=== PATIENT | female | born 1970 | race Caucasian/White ===

== ENCOUNTER 2018-04-19 07:34 | Inpatient (IN) | payer BC ==
[2018-04-19] VITALS (10 sets, daily range): BP systolic 110–169; BP diastolic 70–98; PULSE 73–115; TEMP 36.7–37; O2SAT 93–95; Ht 162.6 cm; Wt 77.6 kg
[~2018-04-19] VITALS: Ht 162.6 cm; Wt 77.6 kg
[~2018-04-19 07:34] MED LIST: ALBU0.08 INH; ALBUAER INH; CLR10 PO; EPP3/2 IM; MONT1TAB3 PO; PRED10TA PO; RANI150T3 PO
[2018-04-19] MEDS ORDERED: METHYLPREDNISOLONE 125 MG VIAL IV STA (07:42)
[2018-04-19] MEDS ORDERED: ALBUT/IPRATROP 3MG/0.5MG NEB 3 ML VIAL INH ONE (07:45)
[2018-04-19] MEDS ORDERED: ALBINS/ INH (07:56)
[2018-04-19] MEDS ORDERED: VNTHFA/IN INH (07:56)
--- NOTE | 2018-04-19 07:57 | DIAGNOSTIC IMAGING REPORT ---
CHEST ONE VIEW PORTABLE CLINICAL HISTORY: EVALUATE RESPIRATORY DISTRESS.DYSPNEA dyspnea COMPARISON STUDY: 01/04/2016 FINDINGS: The bones soft tissues and hemidiaphragms are normal. The cardiomediastinal silhouette is normal. The lungs are clear. The pulmonary vasculature is normal. IMPRESSION: Negative chest. The above report was generated using voice recognition software. It may contain grammatical, syntax or spelling errors. Electronically signed by: Sandip Sanz M.D. 04/19/2018 7:56 AM Dictated Date/Time: 04/19/2018 7:55 AM
[2018-04-19 08:10] LABS: BASO % 0.3 %; BASO ABS # 0.03 K/uL (0-0.2); EOS % 3.9 %; EOS ABS # 0.43 K/uL (0-0.5); HEMATOCRIT 45.2 % (37-47); IG# 0.03 K/uL (0.00-0.02); LYMPH % 31.6 %; LYMPH ABS # 3.48 K/uL (1.2-3.4); MEAN CELL VOLUME 85.6 fL (80-100); MEAN CORPUSCULAR HEMOGLOBIN 28.4 pg (25-34); MEAN CORPUSCULAR HGB CONC 33.2 g/dl (32-36); MEAN PLATELET VOLUME 9.3 fL (7.4-10.4); MONO % 8.5 %; MONO ABS # 0.94 K/uL (0.11-0.59); NEUT % 55.4 %; NEUT ABS # 6.11 K/uL (1.4-6.5); PLATELET COUNT 301 K/uL (130-400); RED CELL DISTRIBUTION WIDTH CV 13.7 % (11.5-14.5); RED CELL DISTRIBUTION WIDTH SD 42.6 fL (36.4-46.3); WHITE BLOOD COUNT 11.02 K/uL (4.8-10.8)
[2018-04-19 08:31] LABS: ALBUMIN 3.8 gm/dl (3.4-5.0); ALKALINE PHOSPHATASE 82 U/L (45-117); ALT/SGPT 17 U/L (12-78); AST/SGOT 11 U/L (15-37); BLOOD UREA NITROGEN 16 mg/dl (7-18); CALCIUM 8.8 mg/dl (8.5-10.1); CARBON DIOXIDE 25 mmol/L (21-32); CREATININE 0.53 mg/dl (0.60-1.20); GLUCOSE 85 mg/dl (70-99); POTASSIUM 3.7 mmol/L (3.5-5.1); SODIUM 141 mmol/L (136-145); TOTAL PROTEIN 6.9 gm/dl (6.4-8.2)
[2018-04-19] MEDS ORDERED: ALBUT/IPRATROP 3MG/0.5MG NEB 3 ML VIAL INH STA (09:36)
[2018-04-19] MEDS ORDERED: MAGNESIUM SULFATE 1GM / D5W 1 GM BAG IV STA (09:39)
[2018-04-19] MEDS ORDERED: ACETAMINOPHEN 325 MG TAB PO PRN (12:00)
[2018-04-19] MEDS ORDERED: ONDANSETRON INJ 2 MG/ML 2 ML VIAL IV PRN (12:00)
[2018-04-19] MEDS ORDERED: AZITHROMYCIN 250 MG TAB PO ONE (12:00)
--- NOTE | 2018-04-19 12:38 | History and Physical ---
History & Physical Date & Time of Service: Apr 19, 2018 ~ 11:15 Chief Complaint: Shortness of breath Primary Care Physician: Jesse Palomares M.D. History of Present Illness Source: patient 39-year-old female who presents the ED with shortness of breath. Patient reports her symptoms began 2 weeks ago. She was seen in her PCPs office about 1 week ago and started on albuterol nebulizer and Medrol Dosepak. Patient completed her steroid taper yesterday. She also tried to take Zyrtec however she broke out in hives. Patient is also to be taking Brio however she self stopped this medication whenever she saw the warnings on the TV commercials. She reports she was on inhaler that she tolerated very well prior to being changed to Brio last fall. She reports she was having improvement in her symptoms until last night whenever she was up coughing all night. Shortness of breath was much more severe this morning. Cough has been nonproductive. She feels like her chest is too tight to produce any sputum. She denies chest pain. She has had some mild lightheadedness and dizziness but denies any syncopal events. No fevers or chills. She denies abdominal pain, nausea, vomiting, diarrhea. She has had some urinary frequency however feels as though that is secondary to her coughing. In the ED, patient received IV Solu-Medrol 125 mg, nebulizer 2, and IV magnesium. Patient reports improvement in her symptoms however chest continues to feel tight and she continues to have wheezing on exam. Past Medical/Surgical History Medical Problems: (1) Asthma Status: Chronic (2) Environmental allergies Status: Chronic Surgical Problems: (1) History of appendectomy Status: Chronic (2) History of nasal septoplasty Status: Chronic (3) History of partial hysterectomy Status: Chronic Family History FH: lung cancer FATHER Stroke FATHER Social History Smoking Status: Current Every Day Smoker Alcohol Use: none Immunizations History of Tetanus Vaccine?: Yes Tetanus Immunization Date: Aug 16, 2011 Allergies Coded Allergies: Cetirizine (Verified Allergy, Intermediate, hives, 04/19/18) Morphine (Verified Allergy, Unknown, RASH, 04/19/18) RASH AND HIVES Sulfa Drugs (Verified Allergy, Unknown, 04/19/18) Home Medications Scheduled Epinephrine (Epipen 2-Bernabe), 1 DOSE IM DIRECTED Scheduled PRN Albuterol Hfa (Ventolin Hfa), 2 PUFFS INH Q4H PRN for SOB/Wheezing Albuterol Sulf (Proventil 0.083% 2.5MG/3ML), 3 ML INH QID PRN for SOB/Wheezing Review of Systems ROS per HPI, all other systems reviewed and negative Physical Exam Vital Signs Date Time Temp Pulse Resp B/P (MAP) Pulse Ox O2 Delivery O2 Flow Rate FiO2 04/19/18 12:05 95 16 122/66 95 04/19/18 11:20 93 Room Air 04/19/18 11:10 93 26 91/66 93 Room Air 04/19/18 09:57 92 22 96/62 94 Room Air 04/19/18 08:55 95 20 125/69 95 Room Air 04/19/18 07:56 115 18 95 Room Air 04/19/18 07:42 92 Room Air 04/19/18 07:42 36.8 104 24 138/100 92 Room Air 04/19/18 07:42 111 General Appearance: WD/WN, no apparent distress Head: normocephalic, atraumatic Eyes: normal inspection, EOMI, sclerae normal ENT: hearing grossly normal, + pertinent finding (Mucous members moist) Neck: supple, no JVD, trachea midline Respiratory/Chest: no respiratory distress, + rhonchi (Noted while coughing), + wheezing (Expiratory), + pertinent finding (Harsh,nonproductive cough with deep breath) Cardiovascular: regular rate, rhythm, no edema, normal peripheral pulses Abdomen/GI: normal bowel sounds, non tender, soft, no organomegaly Extremities/Musculoskelatal: normal inspection, no calf tenderness, normal capillary refill Neurologic/Psych: no motor/sensory deficits, alert, normal mood/affect, oriented x 3 Skin: normal color, warm/dry Diagnostics Laboratory Results Results Past 24 Hours Test 04/19/18 08:00 04/19/18 09:00 Range/Units White Blood Count 11.02 4.8-10.8 K/uL Red Blood Count 5.28 4.2-5.4 M/uL Hemoglobin 15.0 12.0-16.0 g/dL Hematocrit 45.2 37-47 % Mean Corpuscular Volume 85.6 80-100 fL Mean Corpuscular Hemoglobin 28.4 25-34 pg Mean Corpuscular Hemoglobin Concent 33.2 32-36 g/dl Platelet Count 301 130-400 K/uL Mean Platelet Volume 9.3 7.4-10.4 fL Neutrophils (%) (Auto) 55.4 % Lymphocytes (%) (Auto) 31.6 % Monocytes (%) (Auto) 8.5 % Eosinophils (%) (Auto) 3.9 % Basophils (%) (Auto) 0.3 % Neutrophils # (Auto) 6.11 1.4-6.5 K/uL Lymphocytes # (Auto) 3.48 1.2-3.4 K/uL Monocytes # (Auto) 0.94 0.11-0.59 K/uL Eosinophils # (Auto) 0.43 0-0.5 K/uL Basophils # (Auto) 0.03 0-0.2 K/uL RDW Standard Deviation 42.6 36.4-46.3 fL RDW Coefficient of Variation 13.7 11.5-14.5 % Immature Granulocyte % (Auto) 0.3 % Immature Granulocyte # (Auto) 0.03 0.00-0.02 K/uL D-Dimer 240 0-500 ug/L FEU Sodium Level 141 136-145 mmol/L Potassium Level 3.7 3.5-5.1 mmol/L Chloride Level 109 98-107 mmol/L Carbon Dioxide Level 25 21-32 mmol/L Anion Gap 7.0 3-11 mmol/L Blood Urea Nitrogen 16 7-18 mg/dl Creatinine 0.53 0.60-1.20 mg/dl Est Creatinine Clear Calc Drug Dose 132.4 ml/min Estimated GFR () 130.1 Estimated GFR (Non- 112.3 BUN/Creatinine Ratio 29.7 10-20 Random Glucose 85 70-99 mg/dl Calcium Level 8.8 8.5-10.1 mg/dl Total Bilirubin 0.3 0.2-1 mg/dl Aspartate Amino Transf (AST/SGOT) 11 15-37 U/L Alanine Aminotransferase (ALT/SGPT) 17 12-78 U/L Alkaline Phosphatase 82 45-117 U/L Troponin I < 0.015 0-0.045 ng/ml Pro-B-Type Natriuretic Peptide 27 0-450 pg/ml Total Protein 6.9 6.4-8.2 gm/dl Albumin 3.8 3.4-5.0 gm/dl Globulin 3.1 2.5-4.0 gm/dl Albumin/Globulin Ratio 1.2 0.9-2 Urine Color YELLOW Urine Appearance CLEAR CLEAR Urine pH 5.0 4.5-7.5 Urine Specific [place] 1.018 1.000-1.030 Urine Protein NEG NEG Urine Glucose (UA) NEG NEG Urine Ketones NEG NEG Urine Occult Blood 1+ NEG Urine Nitrite NEG NEG Urine Bilirubin NEG NEG Urine Urobilinogen NEG NEG Urine Leukocyte Esterase NEG NEG Urine WBC (Auto) 1-5 0-5 /hpf Urine RBC (Auto) 0-4 0-4 /hpf Urine Hyaline Casts (Auto) 1-5 0-5 /lpf Urine Epithelial Cells (Auto) >30 0-5 /lpf Urine Bacteria (Auto) NEG NEG Diagnostic Radiology CXR IMPRESSION: Negative chest. EKG EKG: Sinus Tachycardia Impression Assessment and Plan ACUTE ASTHMA EXACERBATION -Admit to telemetry -Patient presenting with shortness of breath for the past 2 weeks, was seen at her PCPs office on 04/13 and given albuterol nebulizer and Medrol Dosepak -In the ED, patient is saturating well on room air however despite 2 nebulizer treatments, IV Solu-Medrol, IV magnesium she continues to have wheezing on exam -continue with [id number] IV Solu-Medrol and nebulizer treatments -Add on empiric azithromycin -Flutter valve to help mobilize secretions -Per outpatient records, prior to the Brio patient was prescribed Qvar and Stiolto which she reports she tolerated very well - consider resuming at discharge DVT PROPHYLAXIS -SQ Lovenox DISPOSITION -In my clinical judgment this beneficiary meets acute admission criteria, established by [facility], that includes being hospitalized through two midnights. Attending Note: Patient is a 47 yr female with PMH of Asthma, Seasonal allergies and other problems presents with history of worsening SOB, cough with clear expectoration , chest tightness since 2 weeks duration. She completed the prednisone course prescribed by her PCP. She admits to not using Breo as prescribed and continues to smoke. 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 CXR showed no signs of pneumonia. Mild leukocytosis likely 2/2 recent prednisone use.Denies any fever, chills but has postnasal drip. Physical Exam: Vitals signs as noted above General Appearance:Moderately built and nourished, no apparent distress Head: normocephalic, Atraumatic Eyes: normal inspection, EOMI, PERRL Neck: supple, Trachea midline Respiratory/Chest: Decreased breath sounds, Expiratory wheezes Cardiovascular: S1, S2, No murmur Abdomen/GI:Soft, Non tender, Bowel sounds present Extremities/Musculoskelatal:normal inspection, no edema Neurologic/Psych:AAOX3, grossly no focal neurological deficits Skin:normal color,warm Assessment and Plan: Acute Asthma Exacerbation CXR: no signs of consolidation Continue IV solumedrol, bronchodilators Oxygen support per protocol Repeat labs in AM I personally reviewed the record. Patient is interviewed and examined at bedside. Patient's care is coordinated with Evelyne Newsome [employer] LAYER HELPER. Please refer to the documentation above for details of patient's presentation and for discussion of other issues. Advanced Directives Existing Living Will: No Existing Power of Manager Planning: No Resuscitation Status VTE Prophylaxis Will order VTE Prophylaxis: Yes
[2018-04-19] MEDS ORDERED: SODIUM CHLORIDE 0.9% 1000ML 1,000 ML IV SCH (12:45)
[2018-04-19] MEDS: ALBUT/IPRATROP 3MG/0.5MG NEB 3 ML VIAL INH SCH ×2 (13:47→19:02)
[2018-04-19] MEDS: ENOXAPARIN 40 MG/0.4 ML SYR SC SCH (14:00)
--- NOTE | 2018-04-19 14:01 | EMERGENCY ROOM VISIT NOTE ---
History Report prepared by Divya: Zainab Elaine Under the Supervision of: Dr. Dez Badillo M.D. First contact with patient: 07:37 Stated Complaint: RESPIRATORY DISTRESS History of Present Illness The patient is a 47 year old female who presents to the Emergency Room with complaints of worsening shortness of breath over the last 2 weeks. She reports that the breathing treatment given en route helped her. The patient states that she saw Dr. Alma Fernando and was placed on Prednisone for seasonal allergies. She also reports trying albuterol for her shortness of breath. The patient states that she finished her prednisone yesterday and states that since she has finished it that her shortness of breath has worsened. The patient states that she has a rescue inhaler but states that she does not use an inhaler on a regular basis. She states that she has asthma and COPD, but denies a history of diabetes or cancer. The patient reports having a productive cough. She states that she gets shortness of breath every year around this time of year. The patient also reports that she tries to take Zyrtec for her allergies but that she breaks out in hives when she does. The patient denies being around anyone sick and also denies recent travel. Pt denies headache, fevers, chills, diaphoresis, visual changes, neck pain, nausea , vomiting, abdominal pain, back pain, or other complaints. Source of History: patient Onset: over the last 2 weeks Position: other (generalized) Quality: other (shortness of breath) Timing: worsening Associated Symptoms: + cough, No nausea Review of Systems See HPI for pertinent positives and negatives. A total of ten systems were reviewed and were otherwise negative. Past Medical & Surgical Medical Problems: (1) Asthma (2) Environmental allergies Surgical Problems: (1) History of appendectomy (2) History of nasal septoplasty (3) History of partial hysterectomy Family History Asthma FHx: allergies Social History Smoking Status: Current Every Day Smoker Drug Use: none Marital Status: Housing Status: lives with family Occupation Status: employed Current/Historical Medications Scheduled Epinephrine (Epipen 2-Bernabe), 1 DOSE IM DIRECTED Scheduled PRN Albuterol Hfa (Ventolin Hfa), 2 PUFFS INH Q4H PRN for SOB/Wheezing Albuterol Sulf (Proventil 0.083% 2.5MG/3ML), 3 ML INH QID PRN for SOB/Wheezing Allergies Coded Allergies: Cetirizine (Verified Allergy, Intermediate, hives, 04/19/18) Morphine (Verified Allergy, Unknown, RASH, 04/19/18) RASH AND HIVES Sulfa Drugs (Verified Allergy, Unknown, 04/19/18) Physical Exam Vital Signs Date Time Temp Pulse Resp B/P (MAP) Pulse Ox O2 Delivery O2 Flow Rate FiO2 04/19/18 11:20 93 Room Air 04/19/18 11:10 93 26 91/66 93 Room Air 04/19/18 09:57 92 22 96/62 94 Room Air 04/19/18 08:55 95 20 125/69 95 Room Air 04/19/18 07:56 115 18 95 Room Air 04/19/18 07:42 92 Room Air 04/19/18 07:42 36.8 104 24 138/100 92 Room Air 04/19/18 07:42 111 Physical Exam GENERAL: Awake, alert, uncomfortable-appearing, in moderate distress HENT: Normocephalic, atraumatic. Oropharynx unremarkable. EYES: Normal conjunctiva. Sclera non-icteric. NECK: Supple. No nuchal rigidity. FROM. No masses. RESPIRATORY: Productive cough of clear sputum, increased respiratory effort. Wheezes bilaterally. CARDIAC: Tachycardic rate. Normal rhythm. No murmurs. No rubs. Extremities warm and well perfused. Pulses equal. No JVD. GI: Soft, non-distended. No tenderness to palpation. No rebound or guarding. No masses. RECTAL: Deferred. MUSCULOSKELETAL: Atraumatic. Chest examination reveals no tenderness. The back is symmetrical on inspection without obvious abnormality. There is no CVA tenderness to palpation. No joint edema. LOWER EXTREMITIES: Calves are equal size bilaterally and non-tender. No edema. No discoloration. NEURO: Normal sensorium. No sensory or motor deficits noted. SKIN: No rash or jaundice noted. Medical Decision & Procedures ER Provider Diagnostic Interpretation: Radiology results as stated below per my review and radiologist interpretation: CHEST ONE VIEW PORTABLE CLINICAL HISTORY: EVALUATE RESPIRATORY DISTRESS.DYSPNEA dyspnea COMPARISON STUDY: 01/04/2016 FINDINGS: The bones soft tissues and hemidiaphragms are normal. The cardiomediastinal silhouette is normal. The lungs are clear. The pulmonary vasculature is normal. IMPRESSION: Negative chest. The above report was generated using voice recognition software. It may contain grammatical, syntax or spelling errors. Electronically signed by: Sandip Sanz M.D. 04/19/2018 7:56 AM Dictated Date/Time: 04/19/2018 7:55 AM Laboratory Results 04/19/18 08:00 Red Blood Count 5.28, Mean Corpuscular Volume 85.6, Mean Corpuscular Hemoglobin 28.4, Mean Corpuscular Hemoglobin Concent 33.2, Mean Platelet Volume 9.3, Neutrophils (%) (Auto) 55.4, Lymphocytes (%) (Auto) 31.6, Monocytes (%) (Auto) 8.5, Eosinophils (%) (Auto) 3.9, Basophils (%) (Auto) 0.3, Neutrophils # (Auto) 6.11, Lymphocytes # (Auto) 3.48, Monocytes # (Auto) 0.94, Eosinophils # (Auto) 0.43, Basophils # (Auto) 0.03 04/19/18 08:00 Test 04/19/18 08:00 04/19/18 09:00 White Blood Count 11.02 K/uL (4.8-10.8) Red Blood Count 5.28 M/uL (4.2-5.4) Hemoglobin 15.0 g/dL (12.0-16.0) Hematocrit 45.2 % (37-47) Mean Corpuscular Volume 85.6 fL (80-100) Mean Corpuscular Hemoglobin 28.4 pg (25-34) Mean Corpuscular Hemoglobin Concent 33.2 g/dl (32-36) Platelet Count 301 K/uL (130-400) Mean Platelet Volume 9.3 fL (7.4-10.4) Neutrophils (%) (Auto) 55.4 % Lymphocytes (%) (Auto) 31.6 % Monocytes (%) (Auto) 8.5 % Eosinophils (%) (Auto) 3.9 % Basophils (%) (Auto) 0.3 % Neutrophils # (Auto) 6.11 K/uL (1.4-6.5) Lymphocytes # (Auto) 3.48 K/uL (1.2-3.4) Monocytes # (Auto) 0.94 K/uL (0.11-0.59) Eosinophils # (Auto) 0.43 K/uL (0-0.5) Basophils # (Auto) 0.03 K/uL (0-0.2) RDW Standard Deviation 42.6 fL (36.4-46.3) RDW Coefficient of Variation 13.7 % (11.5-14.5) Immature Granulocyte % (Auto) 0.3 % Immature Granulocyte # (Auto) 0.03 K/uL (0.00-0.02) D-Dimer 240 ug/L FEU (0-500) Anion Gap 7.0 mmol/L (3-11) Est Creatinine Clear Calc Drug Dose 132.4 ml/min Estimated GFR () 130.1 Estimated GFR (Non- 112.3 BUN/Creatinine Ratio 29.7 (10-20) Calcium Level 8.8 mg/dl (8.5-10.1) Total Bilirubin 0.3 mg/dl (0.2-1) Aspartate Amino Transf (AST/SGOT) 11 U/L (15-37) Alanine Aminotransferase (ALT/SGPT) 17 U/L (12-78) Alkaline Phosphatase 82 U/L (45-117) Troponin I < 0.015 ng/ml (0-0.045) Pro-B-Type Natriuretic Peptide 27 pg/ml (0-450) Total Protein 6.9 gm/dl (6.4-8.2) Albumin 3.8 gm/dl (3.4-5.0) Globulin 3.1 gm/dl (2.5-4.0) Albumin/Globulin Ratio 1.2 (0.9-2) Urine Color YELLOW Urine Appearance CLEAR (CLEAR) Urine pH 5.0 (4.5-7.5) Urine Specific [place] 1.018 (1.000-1.030) Urine Protein NEG (NEG) Urine Glucose (UA) NEG (NEG) Urine Ketones NEG (NEG) Urine Occult Blood 1+ (NEG) Urine Nitrite NEG (NEG) Urine Bilirubin NEG (NEG) Urine Urobilinogen NEG (NEG) Urine Leukocyte Esterase NEG (NEG) Urine WBC (Auto) 1-5 /hpf (0-5) Urine RBC (Auto) 0-4 /hpf (0-4) Urine Hyaline Casts (Auto) 1-5 /lpf (0-5) Urine Epithelial Cells (Auto) >30 /lpf (0-5) Urine Bacteria (Auto) NEG (NEG) Laboratory results reviewed by me Medications Administered Medications (Trade) Dose Ordered Sig/Nilsa Route Start Time Stop Time Status Last Admin Dose Admin Albuterol/ Ipratropium (Duoneb) 12 ml ONE ONCE INH 04/19/18 07:45 04/19/18 07:46 DC 04/19/18 07:55 12 ML Methylprednisolone Sodium Succinate (Solu-Medrol IV) 125 mg NOW STAT IV 04/19/18 07:42 04/19/18 07:44 DC 04/19/18 07:54 125 MG Albuterol/ Ipratropium (Duoneb) 3 ml NOW STAT INH 04/19/18 09:36 04/19/18 09:39 DC 04/19/18 09:44 3 ML Magnesium Sulfate (Magnesium Sulfate 1gm / D5W) 1 gm NOW STAT IV 04/19/18 09:39 04/19/18 09:40 DC 04/19/18 09:44 1 GM ECG Per My Interpretation Indication: SOB/dyspnea Rate (beats per minute): 110 Rhythm: sinus tachycardia Findings: other (no PACs, no PVCs, no ST elevation, no ST depression) ED Course 0741: The patient was evaluated in room B7. A complete history and physical exam was performed. 0742: Ordered Methylprednisolone Sodium Succinate 125 mg IV. 0745: Ordered Duoneb 12 ml INH. 0935: I checked on the patient. She is still wheezing after an hour long treatment. She will be given another hour long breathing treatment and IV Magnesium. 0936: Ordered Duoneb 3 ml INH. 0939: Ordered Magnesium Sulfate 1 gm IV. 1102: Upon reexamination, the patient was still wheezing. I discussed the test results and treatment plan with her. The patient will be evaluated for further management by Evelyne VIZCARRA. Medical Decision Prior records/ancillary studies reviewed. Triage Nursing notes reviewed and agree them. Additional history obtained from the family. The patient's history was concerning for shortness of breath. Differential diagnosis: Etiologies such as pneumonia, COPD, reactive airway disease, CHF, cardiac ischemia, pulmonary embolism, pneumothorax, musculoskeletal, infections, gastrointestinal, as well as others were entertained. Physical examination: As above. The patient was wheezing. ER treatment provided: Hour-long DuoNeb Solu-Medrol On reassessment the patient felt better but was still wheezing. DuoNeb IV magnesium. On reassessment the patient's vital signs look better but she was still wheezing and had increased work of breathing. Diagnostic interpretation by me: The electrocardiogram was negative for pathologic change. The labs revealed an unremarkable CBC and chemistry panel. Cardiac markers negative. D-dimer negative. Imaging studies: Chest x-ray as above. Patient has significant reactive airways. She had a nebulizer treatment at home and in the ambulance. She had a total of 6 treatments here plus IV magnesium. Given the persistent wheezing and increased work of breathing after a total of 8 breathing treatments further management in the hospital is necessary. Consultation: A consultation was placed with the hospitalist. The case was discussed and diagnostics were reviewed. The patient was evaluated in the ER for further treatment. Medication Reconcilliation Current Medication List: was personally reviewed by me Blood Pressure Screening Patient's blood pressure: Low blood pressure will be monitored by hospitalist Consults Time Called: 1053 Consulting Physician: Evelyne Vasquez Returned Call: [phone] Discussed the patient's case. The patient will be evaluated for further treatment and disposition. Impression Primary Impression: Reactive airway disease Scribe Attestation The scribe's documentation has been prepared under my direction and personally reviewed by me in its entirety. I confirm that the note above accurately reflects all work, treatment, procedures, and medical decision making performed by me. Departure Information Dispostion Being Evaluated By Hospitalist Jesse Padron M.D. (PCP)
[2018-04-19] MEDS: METHYLPREDNISOLONE IV 40 MG in SYRINGE 0 ML IV SCH (17:06)
[2018-04-20] VITALS (10 sets, daily range): BP systolic 91–119; BP diastolic 54–79; PULSE 74–114; TEMP 36.6–36.8; O2SAT 91–96
[2018-04-20] MEDS: METHYLPREDNISOLONE IV 40 MG in SYRINGE 0 ML IV SCH ×2 (00:32→07:54)
[2018-04-20] MEDS: ALBUT/IPRATROP 3MG/0.5MG NEB 3 ML VIAL INH SCH ×2 (01:45→07:05)
[2018-04-20 06:34] LABS: HEMOGLOBIN 14.5 g/dL (12.0-16.0); MEAN CELL VOLUME 85.7 fL (80-100); MEAN CORPUSCULAR HEMOGLOBIN 28.9 pg (25-34); MEAN CORPUSCULAR HGB CONC 33.7 g/dl (32-36); MEAN PLATELET VOLUME 9.7 fL (7.4-10.4); PLATELET COUNT 290 K/uL (130-400); RED CELL DISTRIBUTION WIDTH CV 13.7 % (11.5-14.5); RED CELL DISTRIBUTION WIDTH SD 42.7 fL (36.4-46.3); WHITE BLOOD COUNT 13.94 K/uL (4.8-10.8)
[2018-04-20 07:14] LABS: CALCIUM 8.8 mg/dl (8.5-10.1); CREATININE 0.53 mg/dl (0.60-1.20); POTASSIUM 4.4 mmol/L (3.5-5.1)
[2018-04-20] MEDS: AZITHROMYCIN 250 MG TAB PO SCH (07:53)
--- NOTE | 2018-04-20 08:38 | Clinical Documentation Query ---
CLINICAL DOCUMENTATION QUERY Dr. VOGT, Specific coding rules apply to patients who have both COPD and asthma. In your clinical opinion is this patient being managed for: ( ) COPD ( ) COPD with exacerbation ( X ) Not Agree ( ) Other explanation of clinical findings (No explanation is considered a No Response) ( ) Unable to determine ( ) Need to Discuss (Phone CDS or qliq) (No discussion is considered a No Response) The medical record reflects the following clinical findings, treatment, and risk factors. Clinical Indicators: 47 yo female presenting with asthma exacerbation. ER documentation indicates pt reported she has "asthma and COPD" however the diagnosis of COPD does not reappear in the clinical note (H/P). Treatment: has prn home nebs and inhaler, inpatient treatment includes IV solumedrol, IV azithromycin, flutter valve, bronchodilators, O2 protocol Risk Factors: tobacco abuse, asthma Please clarify and document your clinical opinion in the progress notes and discharge summary. Terms such as "probable", "suspected", "likely", "questionable", "possible", or "still to be ruled out" are acceptable. IF IN AGREEMENT, YOU MUST DOCUMENT ABOVE DIAGNOSTIC STATEMENT IN DAILY PROGRESS NOTES AND DISCHARGE SUMMARY. This document is not part of the patient's record. Thank You, Park Sesay RN [phone]
--- NOTE | 2018-04-20 11:08 | Progress Note ---
Internal Med Progress Note Date of Service: Apr 20, 2018. Provider Documentation: SUBJECTIVE: Seen and examined at bedside Doing much better today SOB, chest tightness, cough improving OBJECTIVE: Vital Signs-as noted below Physical Exam: General Appearance:Moderately built and nourished, no apparent distress Head: normocephalic, Atraumatic Eyes: normal inspection, EOMI, PERRL Neck: supple, Trachea midline Respiratory/Chest: Normal breath sounds, Wheezing much improved Cardiovascular: S1, S2, +Tachycardia, No murmur Abdomen/GI:Soft, Non tender, Bowel sounds present Extremities/Musculoskelatal:normal inspection, no edema Neurologic/Psych:AAOX3, grossly no focal neurological deficits Skin: normal color, warm Lab data as noted below. ASSESSMENT & PLAN: Acute Asthma Exacerbation Was on Qvar and Stiolto previously which patient tolerated well Changed to Breo last year which patient has not been using CXR: no signs of consolidation Continue IV solumedrol, bronchodilators Oxygen support per protocol Decrease IV solumderol to Q daily Tobacco use disorder: Counselled to quit smoking Refuses Nicotine patch DVT Px: Lovenox SQ Code Status: Full Code Disposition: Likely discharge tomorrow if medically stable Vital Signs: Date Time Temp Pulse Resp B/P (MAP) Pulse Ox O2 Delivery O2 Flow Rate FiO2 04/20/18 08:00 Room Air 04/20/18 07:37 36.7 114 19 114/77 (89) 91 Room Air 04/20/18 07:05 85 20 96 Room Air 04/20/18 04:13 36.6 82 18 119/75 (90) 93 Room Air 04/20/18 01:46 92 22 96 Room Air 04/19/18 23:44 36.7 89 18 110/71 (84) 93 04/19/18 20:04 95 Room Air 04/19/18 19:09 37.0 99 18 120/70 (87) 95 04/19/18 19:02 80 22 95 Room Air 04/19/18 15:15 94 Room Air 04/19/18 15:14 36.8 73 18 169/98 (121) 94 04/19/18 13:51 73 22 93 Room Air 04/19/18 12:20 36.7 77 22 124/80 (95) 94 Room Air 04/19/18 12:05 95 16 122/66 95 04/19/18 11:20 93 Room Air 04/19/18 11:10 93 26 91/66 93 Room Air Lab Results: Results Past 24 Hours Test 04/19/18 13:10 04/20/18 05:45 Range/Units Prothrombin Time 10.0 9.0-12.0 SECONDS Prothromb Time International Ratio 1.0 0.9-1.1 White Blood Count 13.94 4.8-10.8 K/uL Red Blood Count 5.02 4.2-5.4 M/uL Hemoglobin 14.5 12.0-16.0 g/dL Hematocrit 43.0 37-47 % Mean Corpuscular Volume 85.7 80-100 fL Mean Corpuscular Hemoglobin 28.9 25-34 pg Mean Corpuscular Hemoglobin Concent 33.7 32-36 g/dl RDW Standard Deviation 42.7 36.4-46.3 fL RDW Coefficient of Variation 13.7 11.5-14.5 % Platelet Count 290 130-400 K/uL Mean Platelet Volume 9.7 7.4-10.4 fL Sodium Level 139 136-145 mmol/L Potassium Level 4.4 3.5-5.1 mmol/L Chloride Level 107 98-107 mmol/L Carbon Dioxide Level 25 21-32 mmol/L Anion Gap 7.0 3-11 mmol/L Blood Urea Nitrogen 12 7-18 mg/dl Creatinine 0.53 0.60-1.20 mg/dl Est Creatinine Clear Calc Drug Dose 130.9 ml/min Estimated GFR () 130.1 Estimated GFR (Non- 112.3 BUN/Creatinine Ratio 23.4 10-20 Random Glucose 157 70-99 mg/dl Calcium Level 8.8 8.5-10.1 mg/dl
[2018-04-20] MEDS: ENOXAPARIN 40 MG/0.4 ML SYR SC SCH (12:54)
[2018-04-20] MEDS: LEVALBUTEROL 0.63MG/3 ML NEB INH SCH ×2 (13:36→18:46)
[2018-04-21] VITALS: O2SAT 94
[2018-04-21] MEDS: LEVALBUTEROL 0.63MG/3 ML NEB INH SCH ×2 (01:39→07:35)
[2018-04-21 01:40] VITALS: PULSE 92; O2SAT 96
[2018-04-21 06:11] LABS: HEMATOCRIT 44.8 % (37-47); MEAN CELL VOLUME 86.5 fL (80-100); MEAN CORPUSCULAR HGB CONC 33.5 g/dl (32-36); MEAN PLATELET VOLUME 9.3 fL (7.4-10.4); PLATELET COUNT 338 K/uL (130-400); RED CELL DISTRIBUTION WIDTH CV 14.1 % (11.5-14.5); WHITE BLOOD COUNT 17.28 K/uL (4.8-10.8)
[2018-04-21 06:48] LABS: CALCIUM 8.7 mg/dl (8.5-10.1); CREATININE 0.67 mg/dl (0.60-1.20); POTASSIUM 3.7 mmol/L (3.5-5.1)
[2018-04-21 07:13] VITALS: BP 103/70; PULSE 74; TEMP 36.8; O2SAT 95
[2018-04-21 07:38] VITALS: PULSE 78; O2SAT 96
[2018-04-21] MEDS ORDERED: METHYLPREDNISOLONE IV 40 MG in SYRINGE 0 ML IV SCH (08:00)
[2018-04-21] MEDS: AZITHROMYCIN 250 MG TAB PO SCH (08:12)
--- NOTE | 2018-04-21 11:15 | Hospitalist Progress Note ---
Hospitalist Progress Note Date of Service Apr 21, 2018. (Mima Wolfe PA-C) ATTENDING ADDENDUM Patient seen and examined, care coordinated with Trang Wolfe PA-C This is a 47-year-old female with past medical history of asthma, tobacco abuse disorder, allergies to multiple medications including Zyrtec, Benadryl (break out in hives) Presented with shortness of breath, wheeze with-asthma exacerbation Patient clinically improved, no hypoxia, no shortness of breath, dyspnea on exertion, Very eager to be discharged home today Medical stable to be discharged Patient given prescription for Xopenex inhaler (however home medication of albuterol inhaler give her tremor) Prednisone taper Hospital follow-up with family physician on 04/24/2018 Patient is counseled multiple times for smoking cessation Please refer to documentation by Trang Wolfe PA-C for further discussion of other chronic issues Melba Walker MD (Melba Walker M.D.) Subjective Pt evaluation today including: conversation w/ patient, chart review, lab review, review of studies Pt seen and examined, sitting on edge of bed. Pt reports is feeling "really good " today and is ready to go home. States breathing much improved and no further SOB or chest tightness and cough has almost resolved. Reports slight wheeze this morning that resolved after nebulizer treatment. Denies fever/chills, diaphoresis, N/V/D/C, BUNCH, dizziness, syncope, vision changes, neck pain, abdominal pain, extremity edema, rashes. (Mima Wolfe PA-C) Objective Vital Signs Date Time Temp Pulse Resp B/P (MAP) Pulse Ox O2 Delivery O2 Flow Rate FiO2 04/21/18 08:10 Room Air 04/21/18 07:38 78 18 96 Room Air 04/21/18 07:13 36.8 74 18 103/70 (81) 95 Room Air 04/21/18 01:40 92 18 96 Room Air 04/21/18 00:00 94 Room Air 04/20/18 18:47 92 18 94 Room Air 04/20/18 16:00 94 Room Air 04/20/18 15:37 36.8 104 16 91/54 (66) 94 Room Air 8/6/18 13:36 92 18 96 Room Air 04/20/18 13:00 95 Room Air 04/20/18 11:42 36.6 74 19 113/79 (90) 95 Room Air (Mima Wolfe PA-C) Physical Exam General Appearance: WD/WN, no apparent distress Eyes: normal inspection ENT: hearing grossly normal, pharynx normal, + pertinent finding (mucous membranes moist) Neck: supple, trachea midline Respiratory/Chest: no respiratory distress, no accessory muscle use, + pertinent finding (faint expiratory wheeze noted, no rales or rhonchi) Cardiovascular: regular rate, rhythm, no murmur Abdomen: normal bowel sounds, non tender, soft Extremities: no pedal edema Neurologic/Psychiatric: alert, normal mood/affect, oriented x 3 Skin: warm/dry (Mima Wolfe PA-C) Laboratory Results Last 24 Hours Test 04/21/18 05:48 White Blood Count 17.28 K/uL Red Blood Count 5.18 M/uL Hemoglobin 15.0 g/dL Hematocrit 44.8 % Mean Corpuscular Volume 86.5 fL Mean Corpuscular Hemoglobin 29.0 pg Mean Corpuscular Hemoglobin Concent 33.5 g/dl RDW Standard Deviation 44.0 fL RDW Coefficient of Variation 14.1 % Platelet Count 338 K/uL Mean Platelet Volume 9.3 fL Sodium Level 140 mmol/L Potassium Level 3.7 mmol/L Chloride Level 108 mmol/L Carbon Dioxide Level 27 mmol/L Anion Gap 5.0 mmol/L Blood Urea Nitrogen 17 mg/dl Creatinine 0.67 mg/dl Est Creatinine Clear Calc Drug Dose 103.6 ml/min Estimated GFR () 120.5 Estimated GFR (Non- 103.9 BUN/Creatinine Ratio 25.6 Random Glucose 74 mg/dl Calcium Level 8.7 mg/dl (Mima Wolfe PA-C) Assessment and Plan ACUTE ASTHMA EXACERBATION Pt doing well today with much improvement with no further SOB/chest tightness and decreased cough & wheezing. oxygenating well on room air at 96%. WBC elevated at 17, likely secondary to steroids CXR had no signs of consolidation Solumedrol IV was changed to once daily yesterday In past pt was on Qvar and Stiolto in past which she reports tolerated well, it was changed to Breo which pt didn't take secondary to concern of side effects TOBACCO ABUSE Smoking cessation discussed Pt denied Nicotine patch DVT Prophylaxis -lovenox Disposition: likely discharge home today Full Code as per discussion with pt Follows with Dr Palomares for routine care Pt was seen with Dr Walker. See addendum (Mima Wolfe ., PA-C)
[2018-04-21 11:32] VITALS: BP 103/70; PULSE 78; TEMP 36.8; O2SAT 96
[2018-04-21] MEDS ORDERED: PRED20TA PO (11:45)
[2018-04-21] MEDS ORDERED: BECL80AE7 INH (11:45)
[2018-04-21] MEDS ORDERED: TIOT1AER INH (11:45)
[2018-04-21] MEDS ORDERED: LEVA45AE INH (11:45)
--- NOTE | 2018-04-21 11:48 | Discharge Instructions ---
Discharge Instructions Date of Service Apr 21, 2018. Admission Reason for Admission: Asthma Exacerbation Discharge Discharge Diagnosis / Problem: ASTHMA EXACERBATION Discharge Goals Goal(s): Decrease discomfort, Improve function, Increase independence, Improve disease control, Therapeutic intervention Activity Recommendations Activity Limitations: resume your previous activity . Instructions / Follow-Up Instructions / Follow-Up Hospital follow up on 04/24/2018@ 2:[address] Jesse Palomares MD at Internal Medicine [facility] Please quit smoking. FOLLOW UP WITH [facility] PLEASE FOLLOW UP WITH YOU FAMILY PHYSICIAN FOR ASSISTANCE TO QUIT SMOKING Current Hospital Diet Patient's current hospital diet: Regular Diet Discharge Diet Recommended Diet: Regular Diet Pending Studies Studies pending at discharge: no Medical Emergencies . Who to Call and When: Medical Emergencies: If at any time you feel your situation is an emergency, please call 911 immediately. . Non-Emergent Contact Non-Emergency issues call your: Primary Care Provider . . "Provider Documentation" section prepared by Mima Wolfe. .
--- NOTE | 2018-04-21 11:52 | Discharge Summary ---
Discharge Summary Date of Service Apr 21, 2018. Discharge Summary Admission Date: Apr 19, 2018 at 11:48 Discharge Date: Apr 21, 2018 Discharge Disposition: Home Principal Diagnosis: ASTHMA EXACERBATION Procedures: 04/19/18 CXR: IMPRESSION: Negative chest. Pending Studies/Follow-Up: No pending studies Medication Reconciliation New Medications: Beclomethasone Dip (Qvar) 80 Mcg/Act Aer 2 INHA INH BID, #1 INHALER 3 Refills Rinse mouth after use Levalbuterol Tartrate (Levalbuterol Tartrate Hfa) 45 Mcg/Act Aer 2 PUFFS INH Q6 PRN for SOB/Wheezing, #1 INHALER 3 Refills Prednisone (Prednisone) 20 Mg Tab 0 PO UD, #12 TAB 3 TABS DAILY FOR 2 DAYS, THEN 2 TABS DAILY FOR 2 DAYS, THEN 1 TAB DAILY FOR 2 DAYS. Tiotropium [place]-Olodaterol (Stiolto Respimat 2.5-2.5 Mcg/Act) 1 Aer Aer 2 INHA INH DAILY, #1 INHALER 3 Refills Continued Medications: Albuterol Sulf (Proventil 0.083% 2.5MG/3ML) 2.5 Mg/3 Ml Nebu 3 ML INH QID PRN for SOB/Wheezing Epinephrine (Epipen 2-Bernabe) 0.3 Mg Inj 1 DOSE IM DIRECTED, #1 APPL 2 Refills Discontinued Medications: Albuterol Hfa (Ventolin Hfa) 200 Puffs/99880 Mcg Aers 2 PUFFS INH Q4H PRN for SOB/Wheezing Referrals At Discharge Follow up Referrals: Physician Referral - 04/24/18 with Jesse Palomares M.D. Admission Information HPI (per Admitting provider): 39-year-old female who presents the ED with shortness of breath. Patient reports her symptoms began 2 weeks ago. She was seen in her PCPs office about 1 week ago and started on albuterol nebulizer and Medrol Dosepak. Patient completed her steroid taper yesterday. She also tried to take Zyrtec however she broke out in hives. Patient is also to be taking Brio however she self stopped this medication whenever she saw the warnings on the TV commercials. She reports she was on inhaler that she tolerated very well prior to being changed to Brio last fall. She reports she was having improvement in her symptoms until last night whenever she was up coughing all night. Shortness of breath was much more severe this morning. Cough has been nonproductive. She feels like her chest is too tight to produce any sputum. She denies chest pain. She has had some mild lightheadedness and dizziness but denies any syncopal events. No fevers or chills. She denies abdominal pain, nausea, vomiting, diarrhea. She has had some urinary frequency however feels as though that is secondary to her coughing. In the ED, patient received IV Solu-Medrol 125 mg, nebulizer 2, and IV magnesium. Patient reports improvement in her symptoms however chest continues to feel tight and she continues to have wheezing on exam. Physical Exam (per Admitting): General Appearance: WD/WN, no apparent distress Head: normocephalic, atraumatic Eyes: normal inspection, EOMI, sclerae normal ENT: hearing grossly normal, + pertinent finding (Mucous members moist) Neck: supple, no JVD, trachea midline Respiratory/Chest: no respiratory distress, + rhonchi (Noted while coughing) , + wheezing (Expiratory), + pertinent finding (Harsh,nonproductive cough with deep breath) Cardiovascular: regular rate, rhythm, no edema, normal peripheral pulses Abdomen/GI: normal bowel sounds, non tender, soft, no organomegaly Extremities/Musculoskelatal: normal inspection, no calf tenderness, normal capillary refill Neurologic/Psych: no motor/sensory deficits, alert, normal mood/affect, oriented x 3 Skin: normal color, warm/dry Hospital Course ACUTE ASTHMA EXACERBATION Pt was initially admitted 04/19/18 for cough, SOB, wheezing. Doing much better today with much improvement with no further SOB/chest tightness and decreased cough & wheezing. oxygenating well on room air. WBC elevated likely secondary to steroids CXR had no signs of consolidation Solumedrol IV, plan to discharge on oral prednisone taper In past pt was on Qvar and Stiolto in past which she reports tolerated well, it was changed to Breo which pt didn't take secondary to concern of side effects, will resume prior inhalers upon discharge Initially albuterol nebulizer treatments however pt felt jittery and then tolerated xopenex nebulizer well. Plan to discharge pt with xopenex inhaler in place of her albuterol TOBACCO ABUSE Smoking cessation discussed Pt denied Nicotine patch in hospital Plan to discharge home today Total time spent on discharge = 40 minutes This includes examination of the patient, discharge planning, medication reconciliation, and communication with other providers. Discharge Instructions Discharge Instructions Date of Service Apr 21, 2018. Admission Reason for Admission: Asthma Exacerbation Discharge Discharge Diagnosis / Problem: ASTHMA EXACERBATION Discharge Goals Goal(s): Decrease discomfort, Improve function, Increase independence, Improve disease control, Therapeutic intervention Activity Recommendations Activity Limitations: resume your previous activity . Instructions / Follow-Up Instructions / Follow-Up Hospital follow up on 04/24/2018@ 2:[address] Jesse Palomares MD at Internal Medicine [facility] Please quit smoking. Current Hospital Diet Patient's current hospital diet: Regular Diet Discharge Diet Recommended Diet: Regular Diet Pending Studies Studies pending at discharge: no Medical Emergencies . Who to Call and When: Medical Emergencies: If at any time you feel your situation is an emergency, please call 911 immediately. . Non-Emergent Contact Non-Emergency issues call your: Primary Care Provider . . "Provider Documentation" section prepared by Mima Wolfe. . Additional Copies To Jesse Palomares M.D.
== END 2018-04-21 12:01 | disposition home or self-care (01) | DRG 203 ==
LOC: EDBD 07:34 → C.EDB 07:35 → C.2T 11:48 → ENRESERV 11:57 → CANRESERV 04-20 11:21 → ENRESERV 04-20 11:43 → C.4E 04-20 12:53
PROVIDERS: ADMIT Internal Medicine; ATTEND Hospitalist
DX: J45.901 Unspecified asthma with (acute) exacerbation (principal); F17.200 Nicotine dependence, unspecified, uncomplicated; Z88.2 Allergy status to sulfonamides; Z88.5 Allergy status to narcotic agent; Z80.1 Family history of malignant neoplasm of trachea, bronchus and lung; Z82.3 Family history of stroke; Z91.09 Other allergy status, other than to drugs and biological substances

== ENCOUNTER 2024-05-15 07:22 | Inpatient (IN) ==
--- OUTSIDE RECORDS SUMMARY | 2024-05-15 07:28 | External Medical Summary | Summary of Care ---
Author Name Unknown Organization [facility] [address] [address] Phone [phone] Care Team Providers Care Screen Repairer Crusher Name Role Phone Jesse Palomares MD Primary Care Provide r Reason for Visit * Reason Comments eRx-Medication Refill Encounter Details Date Type Department Care Team (Late st Contact Info) Description 04/26/2024 Refill Pulmonary Medicine, [facility] [address] [place] [id number] Roxanna Velasquez CRNP [address] [place] [id number] COPD, group A, by GOLD 2017 classification ([facility]) Allergies Active Allergy Reactions Criticality Noted Date Comments Diphenhydramine Hives Medium 04/24/2018 Varenicline Psych complications 02/15/2021 Fluticasone 03/21/2021 Throat irritation Montelukast 12/17/2019 depression Morphine Hives 02/01/2016 Sulfa Antibiotics Other (Please comment) 2008 Joint swellling Cetirizine 12/27/2019 Pt reported diffuse hives within 30 min documented as of this encounter (statuses as of 04/27/2024) Medications Medication Sig Dispensed Refills Start Date End Date Status EpiPen 2-Bernabe 0.3 MG/0.3ML Injection Solution Auto-injectorIndicat ions:Urticaria Ok for generic, use as needed for anaphylactic reaction 2 Each 03/21/2021 Active Albuterol Sulfate (2.5 MG/3ML) 0.083% Inhalation Nebulization Solution (Proventil)Indicatio ns:Moderate persistent reactive airway disease with wheezing with acute exacerbation INHALE 1 VIAL VIA NEBULIZER EVERY 4 HOURS NEEDED FOR WHEEZING 300 mL 1 05/11/2021 Active Ibuprofen 600 MG Oral Tablet (Motrin)Indications: Sprain and strain of left ankle Take 1 Tablet by mouth every 6 hours as needed (pain). with food for pain 40 Tablet 1 10/04/2021 Active Phenazopyridine HCl 100 MG Oral Tablet (Pyridium)Indication s:Left sided abdominal pain,Renal stone Take by mouth 1 Tablet as needed in the morning AND 1 Tablet as needed at noon AND 1 Tablet as needed in the evening for Pain, Moderate. 10 Tablet 03/22/2022 Active Qvar RediHaler 80 MCG/ACT Inhalation Aerosol Breath Activated (Beclomethasone Diprop HFA)Indications:COPD , group A, by GOLD 2017 classification (HCC) INHALE BY MOUTH 2 PUFFS IN THE MORNING AND 2 PUFFS BEFORE BEDTIME. 10.6 g 5 12/18/2022 Active Stiolto Respimat 2.5-2.5 MCG/ACT Inhalation Aerosol Solution (Tiotropium-Olodater ol)Indications:COPD, mild (HCC) INHALE 2 PUFFS BY MOUTH EVERY DAY 12 g 3 09/09/2023 Active Albuterol Sulfate HFA 108 (90 Base) MCG/ACT Inhalation Aerosol Solution INHALE 2 PUFFS BY MOUTH EVERY 4 HOURS NEEDED FOR COUGH, SHORTNESS OF BREATH OR WHEEZING. SHAKE CAN FOR 10 SECONDS BEFORE EACH PUFF 6.7 g 3 04/06/2024 Active documented as of this encounter (statuses as of 04/27/2024) Active Problems Problem Noted Date Diagnosed Date COPD, group B, by GOLD 2017 classification 08/26 Overview: Per COPD GOLD Classification Obesity, Class I, BMI 30.0-34.9 (see actual BMI) 03/22/2019 Urticaria 02/05/2016 Allergic rhinitis 02/01/2016 Mild persistent asthma without complication 01/13 Osteoarthritis of the pelvic region and thigh JAZMINE (generalized anxiety disorder) 05/06/2012 Tobacco use disorder 05/06/2012 documented as of this encounter (statuses as of 04/27/2024) Resolved Problems Problem Noted Date Diagnosed Date Resolved Date COPD, mild 04/24/2018 08/29/2022 Overview: Per COPD GOLD Classification Overweight (BMI 25.0-29.9) 05/07/2013 0 04/24/2018 Reactive airway disease with wheezing 05/07/2013 02/01/2016 Overweight (BMI 25.0-29.9) 05/06/2012 0 01/27/2013 Localized osteoarthrosis not specified whether primary or secondary, pelvic region and thigh 01/27/2013 BMI 29.0-29.9,adult 05/07/20 13 Seasonal allergies 6 documented as of this encounter (statuses as of 04/27/2024) Immunizations Name Administration Dates Next Due Pneumococcal Polysaccharide PPV23 (Pneumovax) Seasonal Influenza, PF, 6 M & above, IM , (FluLaval or Fluzone) 07/07/2019 TDAP, Age 7 and older, IM (Adacel) 08/16/2011 documented as of this encounter Social History Tobacco Use Types Packs/Day Years Used Date Smoking Tobacco: Every Day Cigarettes 1.5 45.6 Started: 09/15/1978 Smokeless Tobacco: Never Comments:started at age 4 1p pd since age 9/passive smoke from father growing up Alcohol Use Standard Drinks/Week Comments Not Currently 0 (1 standard drink = 0.6 oz pur e alcohol) PHQ-2 Answer Date Recorded PHQ-2 Score 0 07/20/2018 Hunger Vital Sign Answer Date Recorded Worried About Running Out of Food in the Last Ye ar Never true 09/27/2019 Ran Out of Food in the Last Year Never true 09/27/2019 Utilities Answer Date Recorded Do you have trouble paying y our heating, water, or electric bill? (Adult - for ages 18 years and over) Not on file 03/02/2024 Is your family able to pay t he heat, water, or electric bill? (Household - for ages 0-17 years) Not on file 03/02/2024 Does your family have access to good internet? (Household - for ages 0-17 years) Not on file 03/02/2024 Social Connections Answer Date Recorded How often do you feel lonely or isolated from those around you? (Adult - for ages 18 years and over) Not on file 03/02/2024 Sex and Gender Information Value Date Recorded Sex Assigned at Not on file Gender Identity Not on file Sexual Orientation Not on file Job Start Date Occupation Industry Not on file Not on file Not on file documented as of this encounter Miscellaneous Notes * Telephone Encounter - Chantal Rogers LPN - 04/27/2024 11:02 AM EDTRefused Prescriptions: Disp Refills Qvar RediHaler 80 MCG/ACT Inhalation Aeros*10.6 g 5 Sig: INHALE2 PUFFS BY MOUTH IN THE MORNING AND BEFORE BEDTIMERefused By: Arturo ROGERS for Refusal: Other (comment below) * Telephone Encounter - Brody Alisa Leonila, [place] - 04/26/2024 6:02 PM EDTPending Prescriptions: Disp Refills Qvar RediHaler 80 MCG/ACT Inhalation Aeros*10.6 g 5 Sig: INHALE 2 PUFFS BY MOUTH IN THE MORNING AND BEFORE BEDTIME * Telephone Encounter - Brody Alisa Leonila, [place] - 04/26/2024 6:02 PM EDT Spoke with pt. She accepted a video visit apt with Dr Woodson on 04/27/24 at 12 noon. * Telephone Encounter - Chantal Rogers LPN - 04/26/2024 3:13 PM EDTPending Prescriptions: Disp Refills Qvar RediHaler 80 MCG/ACT Inhalation Aeros*10.6 g 5 Sig: INHALE 2 PUFFS BY MOUTH IN THE MORNING AND BEFORE BEDTIME * Telephone Encounter - Chantal Rogers LPN - 04/26/2024 3:13 PM EDT Pt will need an appt for refill documented in this encounter Plan of Treatment Upcoming Encounters Date Type Department Care Team (Late st Contact Info) Description 04/27/2024 12:00 PM EDT Telemedicine Pulmonary Medicine, [facility] [address] [facility] [place] [address] Reuben Woodson MD [address] [place] [address] Health Maintenance Due Date Last Done Comments DISCUSS TOBACCO CESSATION (REFER TO SMARTSET #[id number]) 1969 HIV Screening 1984 Hepatitis C Screening 1987 O2 ASSESSMENT COMPLETED IN PAST YEAR FOR COPD 1987 Hepatitis B Vaccine (1 of 3 - 19+ 3-dose series) 1988 Cologuard 2014 Colonoscopy 2014 Colorectal Cancer Screening 2014 Fecal Occult Blood Test 2014 Sigmoidoscopy 2014 Depression Screening 04/28/2019 04/28/2018 Zoster Vaccines (1 of 2) 2019 Diabetes Screening 07/04/2019 07/04/2016, 0 01/12/2016, 01/18/2015, Additional history exists Mammogram 04/21/2020 04/21/2019, 02/13, 02/02/2015, Additional history exists Pneumococcal Vaccine: Pediatrics (0 to 5 Years) and At-Risk Patients (6 to 64 Years) (2 of 2 - PCV) 08/18/2020 08/18/2019 DTaP,Tdap,and Td Vaccines (2 - Td or Tdap) 08/16/2021 08/16/2011 Lipid Panel 01/21/2022 01/21/2017, 06/16, 01/18/2015, Additional history exists COVID-19 Vaccine (1 - 2022-24 season) 2023 Influenza Vaccine (FLU shot) (#1) 2024 07/07/2019 Pap Smear Discontinued 06/05/2018, 10/17, 04/03/2010 (Done elsewhere) Lung Cancer Screening Completed 09/16/2019 Alpha-1 Antitrypsin Completed 02/22/2022 HPV (Gardasil) Vaccine Aged Out No lo nger eligible based on patient's age to complete this topic MENINGOCOCCAL (MENACTRA/MENVEO) Aged Out No longer eligible based on patient's age to complete this topic documented as of this encounter Medical Devices Not on filedocumented as of this encounter Visit Diagnoses Diagnosis COPD, group A, by GOLD 2017 classification (HCC) documented in this encounter Care Teams Screen Repairer Crusher Relationship Specialty Start Date End Date Jesse Palomares MD [address] [place] [address] [place] [id number] PCP - General Family Medicine 08/23/14 documented as of this encounter
--- OUTSIDE RECORDS SUMMARY | 2024-05-15 07:28 | External Medical Summary | Summary of Care ---
Author Name Unknown Organization [facility] Address [address] [place] [address] Phone [phone] Care Team Providers Care [employer] Medic Name Role Phone Jesse Palomares MD Primary Care Provide r Reason for Visit * Reason Onset Date Comments Advice 04/28/2024 Encounter Details Date Type Department Care Team (Late st Contact Info) Description 04/28/2024 Telephone Family Medicine [address] [phone] Jesse Palomares MD [address] [place] [id number] Advice Allergies Active Allergy Reactions Criticality Noted Date Comments Diphenhydramine Hives Medium 04/24/2018 Varenicline Psych complications 02/15/2021 Fluticasone 03/21/2021 Throat irritation Montelukast 12/17/2019 depression Morphine Hives 02/01/2016 Sulfa Antibiotics Other (Please comment) 2008 Joint swellling Cetirizine 12/27/2019 Pt reported diffuse hives within 30 min documented as of this encounter (statuses as of 05/03/2024) Medications Medication Sig Dispensed Refills Start Date End Date Status EpiPen 2-Bernabe 0.3 MG/0.3ML Injection Solution Auto-injectorIndicat ions:Urticaria Ok for generic, use as needed for anaphylactic reaction 2 Each 03/21/2021 Active Ibuprofen 600 MG Oral Tablet (Motrin)Indications: [...] for Pain, Moderate. 10 Tablet 03/22/2022 Active Stiolto Respimat 2.5-2.5 MCG/ACT Inhalation Aerosol Solution (Tiotropium-Olodater ol)Indications:COPD, mild (HCC) INHALE 2 PUFFS BY MOUTH EVERY DAY 12 g 3 09/09/2023 Active Albuterol Sulfate HFA 108 (90 Base) MCG/ACT Inhalation Aerosol Solution INHALE 2 PUFFS BY MOUTH EVERY 4 HOURS NEEDED FOR COUGH, SHORTNESS OF BREATH OR WHEEZING. SHAKE CAN FOR 10 SECONDS BEFORE EACH PUFF 6.7 g 3 04/06/2024 Active Albuterol Sulfate (2.5 MG/3ML) 0.083% Inhalation Nebulization Solution (Proventil)Indicatio ns:Moderate persistent reactive airway disease with wheezing with acute exacerbation INHALE 1 VIAL VIA NEBULIZER EVERY 4 HOURS NEEDED FOR WHEEZING 300 mL 1 04/27/2024 Active Qvar RediHaler 80 MCG/ACT Inhalation Aerosol Breath Activated (Beclomethasone Diprop HFA)Indications:COPD , group A, by GOLD 2017 classification (HCC) Inhale 2 Puffs by mouth in the morning and 2 Puffs before bedtime. 10.6 g 5 04/27/2024 4 Active methylPREDNISolone 4 MG Oral Tablet Therapy Pack (Medrol Dosepack) follow package directions 21 Tablet 04/27/2024 Active Azithromycin 250 MG Oral Tablet (Zithromax Z-Bernabe) Please take 500 mg by mouth on day one, followed by 250 mg by mouth for four days. 6 Tablet 04/27/2024 Active documented as of this encounter (statuses as of 05/03/2024) Active Problems Problem Noted Date Diagnosed Date [...] as of this encounter (statuses as of 05/03/2024) Resolved Problems Problem Noted Date Diagnosed Date [...] as of this encounter (statuses as of 05/03/2024) Immunizations Name Administration Dates Next Due Pneumococcal [...] encounter Miscellaneous Notes * Telephone Encounter - Alisa Saleh LPN - 04/29/2024 1:39 PM EDT This is a duplicate message. The pt has made the same request of Dr Woodson, the ordering physician, and he is handling it. * Telephone Encounter - Taryn Mccoy OSA - 04/28/2024 10:33 AM EDT A medication prescription change, dosage change, or quantity change was requested for this patient. Name of Requestor: Patient Medication: Azithromycin and Methyl prednisone Reason for request: Allergic reactions She is asking for a gentle antibiotic and regular prednisone Preferred pharmacy: [facility] documented in this encounter Plan of Treatment Upcoming Encounters Date Type Department Care Team (Late st Contact Info) Description 04/27/2025 10:00 AM EDT Telemedicine Pulmonary Medicine, [address] [place] [id number] Reuben Woodson MD [address] [place] [address] Health Maintenance Due Date Last Done Comments DISCUSS TOBACCO CESSATION (REFER TO SMARTSET #6225) 1970 HIV Screening 1984 Hepatitis C Screening [...] 06/16, 01/18/2015, Additional history exists COVID-19 Vaccine ( - 2022- season) 2023 Influenza Vaccine (FLU shot) (#1) [...] Not on filedocumented as of this encounter Care Teams [employer] Medic Relationship Specialty Start Date End Date Jesse Palomares MD [address] [place] [address] [place] [phone] PCP - General Family Medicine 08/23/14 documented as of this encounter
--- OUTSIDE RECORDS SUMMARY | 2024-05-15 07:28 | External Medical Summary | Summary of Care ---
Author Name Unknown Organization [facility] [address] [facility] [address] Phone [phone] Care Team Providers Care Purse Seiner Name Role Phone Jesse Palomares MD Primary Care Provide r Reason for Visit * Reason Onset Date Comments Medication Question 04/28/2024 Advice 04/28/2024 Encounter Details Date Type Department Care Team (Late st Contact Info) Description 04/28/2024 Telephone Pulmonary Medicine Dejon Toney [address] [place] [phone] Reuben Woodson MD [address] [place] [address] Medication Question; Advice Allergies Active Allergy Reactions Criticality Noted Date Comments Diphenhydramine Hives Medium 04/24/2018 Varenicline Psych complications 02/15/2021 Fluticasone 03/21/2021 Throat irritation Montelukast 12/17/2019 depression Morphine Hives 02/01/2016 Sulfa Antibiotics Other (Please comment) 2008 Joint swellling Cetirizine 12/27/2019 Pt reported diffuse hives within 30 min documented as of this encounter (statuses as of 04/29/2024) Medications Medication Sig Dispensed Refills Start Date [...] as of this encounter (statuses as of 04/29/2024) Active Problems Problem Noted Date Diagnosed Date [...] as of this encounter (statuses as of 04/29/2024) Resolved Problems Problem Noted Date Diagnosed Date [...] as of this encounter (statuses as of 04/29/2024) Immunizations Name Administration Dates Next Due Pneumococcal [...] encounter Miscellaneous Notes * Telephone Encounter - Ayah Phan OSA - 04/29/2024 3:06 PM EDT Patient call back to speak To the Nurse, she ask if they can contact her back at [phone]. Please advice * Addendum Note - Alisa Delgadillo LPN - 04/29/2024 2:01 PM EDTAddended by: ALISA DELGADILLO on: 04/29/2024 02:01 PM Modules accepted: Orders * Telephone Encounter - Alisa Delgadillo LPN - 04/29/2024 1:52 PM EDT The pt absolutely refuses to take Medrol Dose Pack. She says she has too many allergies, and doesn't believe it's the same as "regular Prednisone" and absolutely won't take it. She also will not takethe Doxycycline (listed as previous medication in her chart), because she says it's too strong and she won't be subjected to that. She wants "just plain Amoxicillin" and Prednisone taper. She says if Dr Woodson won't give her whatshe wants, she will contact her PCP. Per Dr Woodson's instructions, Amoxicillin and Prednisone taper were phoned to her pharmacy. She was advised to take meds as prescribed, and to call if symptoms worsen or persist. * Telephone Encounter - Aure Muhammad CPhT - 04/28/2024 9:07 AM EDT Patient transferred to Pulmonary office for assistance with medication questions Thank You, Aure Muhammad CPhT Public Relations Player III [facility] ([facility]) documented in this encounter Plan of Treatment Upcoming Encounters Date Type Department Care Team (Late st Contact Info) Description 04/27/2025 10:00 AM EDT Telemedicine Pulmonary Medicine, [address] [place] [address] Reuben Woodson MD [address] [facility] [place] [address] Health Maintenance Due Date Last Done Comments DISCUSS TOBACCO CESSATION (REFER TO SMARTSET #4975) 1970 HIV Screening 1984 Hepatitis C Screening [...] 06/16, 01/18/2015, Additional history exists COVID-19 Vaccine (2022- season) 2023 Influenza Vaccine (FLU shot) (#1) [...] as of this encounter Visit Diagnoses Diagnosis Acute sinusitis- Primary Acute sinusitis, unspecified documented in this encounter Care Teams Purse Seiner Relationship Specialty Start Date End Date Jesse Palomares MD [address] [place] [address] [place] [phone] PCP - General Family Medicine 08/23/14 documented as of this encounter
--- OUTSIDE RECORDS SUMMARY | 2024-05-15 07:28 | External Medical Summary | Summary of Care ---
Author Name Unknown Organization [facility] Address [address] [facility] [address] Phone [phone] Care Team Providers Care Radar Tester Name Role Phone Jesse Palomares MD Primary Care Provide r Encounter Details Date Type Department Care Team (Latest Contact Info) Description 04/27/2024 12:00 PM EDT Telemedicine Pulmonary Medicine, [facility] [address] [facility] [place] [address] Reuben Woodson MD [address] [facility] [place] [id number] Pulmonary emphysema, unspecified emphysema type (HCC)*; Moderate persistent reactive airway disease with wheezing with acute exacerbation; COPD, group A, by GOLD 2017 classification (HCC) Allergies Active Allergy Reactions Criticality Noted Date [...] Status EpiPen 2-Bernabe 0.3 MG/0.3ML Injection Solution Auto-injectorIndica tions:Urticaria Ok for generic, use as needed for anaphylactic reaction 2 Each 03/21/2021 Active Ibuprofen 600 MG Oral Tablet (Motrin)Indications :Sprain and strain of left ankle Take 1 Tablet by mouth every 6 hours as needed (pain). with food for pain 40 Tablet 1 10/04/2021 Active Phenazopyridine HCl 100 MG Oral Tablet (Pyridium)Indicatio ns:Left sided abdominal pain,Renal stone Take by mouth 1 Tablet as needed in the morning AND 1 Tablet as needed at noon AND 1 Tablet as needed in the evening for Pain, Moderate. 10 Tablet 03/22/2022 Active Stiolto Respimat 2.5-2.5 MCG/ACT Inhalation Aerosol Solution (Tiotropium-Olodate rol)Indications:ROBOT TECHNICIAN D, mild (HCC) INHALE 2 PUFFS BY MOUTH EVERY DAY 12 g 3 09/09/2023 Active Albuterol Sulfate HFA 108 (90 Base) MCG/ACT Inhalation Aerosol Solution INHALE 2 PUFFS BY MOUTH EVERY 4 HOURS NEEDED FOR COUGH, SHORTNESS OF BREATH OR WHEEZING. SHAKE CAN FOR 10 SECONDS BEFORE EACH PUFF 6.7 g 3 04/06/2024 Active Albuterol Sulfate (2.5 MG/3ML) 0.083% Inhalation Nebulization Solution (Proventil)Indicati ons:Moderate persistent reactive airway disease with wheezing with acute exacerbation INHALE 1 VIAL VIA NEBULIZER EVERY 4 HOURS NEEDED FOR WHEEZING 300 mL 1 04/27/2024 Active Qvar RediHaler 80 MCG/ACT Inhalation Aerosol Breath Activated (Beclomethasone Diprop HFA)Indications:ROBOT TECHNICIAN D, group A, by GOLD 2017 classification (HCC) [...] for four days. 6 Tablet 04/27/2024 Active Albuterol Sulfate (2.5 MG/3ML) 0.083% Inhalation Nebulization Solution (Proventil)Indicati ons:Moderate persistent reactive airway disease with wheezing with acute exacerbation INHALE 1 VIAL VIA NEBULIZER EVERY 4 HOURS NEEDED FOR WHEEZING 300 mL 1 05/11/2021 4 Discontinu ed(Refill) Qvar RediHaler 80 MCG/ACT Inhalation Aerosol Breath Activated (Beclomethasone Diprop HFA)Indications:ROBOT TECHNICIAN D, group A, by GOLD 2017 classification (HCC) INHALE BY MOUTH 2 PUFFS IN THE MORNING AND 2 PUFFS BEFORE BEDTIME. 10.6 g 5 12/18/2022 4 Discontinu ed(Refill) documented as of this encounter (statuses as [...] on file documented as of this encounter Progress Notes * Reuben Woodson MD - 04/27/2024 12:42 PM EDT Patient location: HOME. I was in a hospital or clinic location. After connecting through televideo,patient was verified with two unique identifiers. Patient (or authorized legal advertising representative) was then informed that this was a Telemedicine visit and being conducted confidentially over secure lines. Methods to assure confidentiality were taken. Patient acknowledged consent and understanding of pr ivacy and security of the Telemedicine visit. The patient agreed to participate. 04/27/2024 Pulmonary Medicine, [address] [place] [id number] Irene Rogel 1970 female 53 year old Attending Physician Documentation: 53- yo female 68 py smoking history Declined LDCT protocol Recent URI sx COPD Moderate persistent Asthma Current BD Rx: Stiolto, QVAR, Albuterol Smoking cessation counseling was provided. Not ready to quit yet. C/w current BD Rx Rescue pack therapy with medrol Dose pack and Z Pack was ordered. F/u 1 year Pulmonary History: Moderate Persistent Asthma, Th2 - last AE 09/2019 COPD, mild, smoking related Mediastinal lymphadenopathy Tobacco use disorder - age 4 to present, max 2 ppd Environmental allergies Family history of lung cancer Pulmonary Medications: Stiolto daily QVAR 80mcg once daily Albuterol HFA Albuterol neb TID recently Flonase hasn't used Has prednisone at home for use as needed Diagnostics: Pulmonary Function Test Results: performed 07/07/2019 FVC 3.02 L, 83% predicted, FEV1 2.02 L, 70% predicted, FEV1/FVC 67% Mild airflow obstruction. +BD response in FEV1 Assessment: Irene Rogel is a 50 year old female who presented to the Pulmonary Medicine Clinic today for evaluation: Asthma, moderate persistent COPD, Gold A 68 pack-year smoking history Tobacco use disorder Allergic rhinitis Recommendations and Plans: 53- yo female 68 py smoking history Declined LDCT protocol Recent URI sx COPD Moderate persistent Asthma Current BD Rx: Stiolto, QVAR, Albuterol Smoking cessation counseling was provided. Not ready to quit yet. C/w current BD Rx Rescue pack therapy with medrol Dose pack and Z Pack was ordered. F/u 1 year Follow Up: Return in about 1 year (around 04/27/2025) for Clinic Visit. | For: Clinic Visit | Check-out note: 53- yo female 68 py smoking history Declined LDCT protocol Recent URI sx COPD Moderate persistent Asthma Current BD Rx: Stiolto, QVAR, Albuterol Smoking cessation counseling was provided. Not ready to quit yet. C/w current BD Rx Rescue pack therapy with medrol Dose pack and Z Pack was ordered. F/u 1 year Reuben Woodson MD Subjective CC: No chief complaint on file. HPI: There are no exam notes on file for this visit. Objective There were no vitals filed for this visit. Exam: Const: No signs of acute distress present. Head/Face: Normal on inspection. Eyes: Conjunctivae clear. Pupils equal round and reactive to light. ENMT: Oropharynx: No erythema, exudate or masses. Posterior pharynx is normal. Neck: Supple and symmetric. Resp: Respiratory examination as outlined above CV: Rate is regular. Rhythm is regular. No heart murmur appreciated. Extremities: No edema of the lower limbs bilaterally. Skin: Skin is warm and dry. Neuro: Coordination normal. No involuntary movement. Psych: Patient's attitude is cooperative. Mood is normal. Affect is normal. Tests reviewed with the patient: No imaging results in the last 6 months Available Radiologic data was reviewed by me in PACS. The images were shown to the patient and findings were discussed with the patient. HOME MEDICATIONS: Albuterol Sulfate (2.5 MG/3ML) 0.083% Inhalation Nebulization Solution (Proventil) Azithromycin 250 MG Oral Tablet (Zithromax Z-Bernabe) methylPREDNISolone 4 MG Oral Tablet Therapy Pack (Medrol Dosepack) Qvar RediHaler 80 MCG/ACT Inhalation Aerosol Breath Activated (Beclomethasone Diprop HFA) Albuterol Sulfate HFA 108 (90 Base) MCG/ACT Inhalation Aerosol Solution Stiolto Respimat 2.5-2.5 MCG/ACT Inhalation Aerosol Solution (Tiotropium-Olodaterol) Phenazopyridine HCl 100 MG Oral Tablet (Pyridium) Ibuprofen 600 MG Oral Tablet (Motrin) EpiPen 2-Bernabe 0.3 MG/0.3ML Injection Solution Auto-injector ROS: No reported history of Hemoptysis, Hematemesis, Melena No reported history of Dysuria, Hematuria, Flank Pain No reported history of chronic headache, seizures No reported history of Fall or trauma . No reported history of recent change in weight or appetite. Past Medical History: Diagnosis Date Allergic rhinitis 02/01/2016 Asthma COPD (chronic obstructive pulmonary disease) (HCC) COPD, mild (HCC) 04/24/2018 Generalized anxiety disorder Localized osteoarthrosis not specified whether primary or secondary, pelvic region and thigh Mild persistent asthma without complication 02/01/2016 Obesity, Class I, BMI 30.0-34.9 (see actual BMI) 03/22/2019 Osteoarthritis of the pelvic region and thigh 05/07/2013 Seasonal allergies Tobacco use disorder 05/06/2012 Ureteral stone with hydronephrosis 09/16/2021 1 mm left UPJ stone with hydronephrosis, UTI treated with Rocephin Past Surgical History: Procedure Laterality Date BREAST LESION,OTHER,EXCISION Left ? benign DELIVERY IMPACT TOOTH REMOV PART BONY NASAL SURGERY PROCEDURE NEC 03/24/2012 Nasal septum, [place]. PARTIAL HYSTERECTOMY 2013 has ovaries--Dr. Warren REMOVAL OF APPENDIX Social History Socioeconomic History Marital status: Tobacco Use Smoking status: Every Day Current packs/day: 1.50 Average packs/day: 1.5 packs/day for 45.6 years (68.4 ttl pk-yrs) Types: Cigarettes Start date: 09/15/1978 Smokeless tobacco: Never Tobacco comments: started at age 4 1ppd since age 9/passive smoke from father growing up Vaping Use Vaping status: Never Used Substance and Sexual Activity Alcohol use: Not Currently Drug use: No Social History Narrative No pets. No mold. Social Determinants of Health Food Insecurity: No Food Insecurity (09/27/2019) Hunger Vital Sign Worried About Running Out of Food in the Last Year: Never true Ran Out of Food in the Last Year: Never true Social Connections Family History Problem Relation Name Age of Onset No Past Hx Mother Stroke Father Lung cancer Father age 68 Neurological Disorder Brother seizures after accident Alcohol and Other Disorders Associated Brother and HTN Other (urticaria) Brother No Known Problems Sister No Known Problems Sister No Known Problems Sister Review of patient's allergies indicates: Allergen Reactions Benadryl [Diphenhydramine] Hives Chantix [Varenicline] Psych complications Flonase [Fluticasone] Throat irritation Montelukast depression Morphine Hives Sulfa Antibiotics Other (Please comment) Joint swellling Zyrtec [Cetirizine] Pt reported diffuse hives within 30 min documented in this encounter Plan of Treatment Health Maintenance Due Date Last Done Comments DISCUSS TOBACCO CESSATION (REFER TO SMARTSET #329) 1970 HIV Screening 1984 Hepatitis C Screening [...] 01/18/2015, Additional history exists COVID-19 Vaccine ( season) 2023 Influenza Vaccine (FLU shot) (#1) [...] as of this encounter Visit Diagnoses Diagnosis Pulmonary emphysema, unspecified emphysema type (HCC)- Primary Moderate persistent reactive airway disease with wheezing with acute exacerbation COPD, group A, by GOLD 2017 classification (HCC) documented in this encounter Care Teams Radar Tester Relationship Specialty Start Date End Date Jesse Palomares MD [address] [place] [address] [place] [phone] PCP - General Family Medicine 08/23/14 documented as of this encounter"
--- OUTSIDE RECORDS SUMMARY | 2024-05-15 07:28 | External Medical Summary | Summary of Care ---
Author Name Unknown Organization [facility] [address] [facility] [address] Phone [phone] Care Team Providers Care Appliance Painter And Refinisher Name Role Phone Jesse Palomares MD Primary Care Provide r Reason for Visit * Reason Onset Date Comments Medication Question 04/28/2024 Advice 04/28/2024 Encounter Details Date Type Department Care Team (Late st Contact Info) Description 04/28/2024 Telephone Pulmonary Medicine Dejon Toney [address] [place] [phone] Reuben Hidalgo MD [address] [place] [address] Medication Question; Advice Allergies Active Allergy Reactions [...] for four days. 6 Tablet 04/27/2024 Active predniSONE 5 MG Oral Tablet (Deltasone)Indicatio ns:Acute sinusitis 4 tab every morning for 5 days, then 2 tab every morning for 5 days, then 1 tab every morning for 5 days, then stop 35 Tablet 04/29/2024 Active Amoxicillin 500 MG Oral Capsule (Amoxil)Indications: Acute sinusitis Take 1 Capsule by mouth in the morning and 1 Capsule at noon and 1 Capsule before bedtime. Until gone.. 30 Capsule 04/29/2024 Active documented as of this encounter (statuses [...] as of this encounter Miscellaneous Notes * Addendum Note - Reuben Hidalgo MD - 04/29/2024 5:10 PM EDTAddended by: REUBEN HIDALGO on: 04/29/2024 05:10 PM Modules accepted: Orders * Telephone Encounter - Alisa Delgadillo LPN - 04/29/2024 3:41 PM EDT I called the pt back and answered her questions. * Telephone Encounter - Ayah Phan OSA - 04/29/2024 3:06 PM EDT Patient call back to speak To the Nurse, she ask if they can contact her back at [phone]. Please advice * Addendum Note - Ailsa Delgadillo LPN - 04/29/2024 2:01 PM EDTAddended [...] and Prednisone taper. She says if Dr Hidalgo won't give her whatshe wants, she will contact her PCP. Per Dr Hidalgo's instructions, Amoxicillin and Prednisone taper were phoned to her pharmacy. She was advised to take meds as prescribed, and to call if symptoms worsen or persist. * Telephone Encounter - Aure Muhammad CPhT - 04/28/2024 9:07 AM EDT Patient transferred to Pulmonary office for assistance with medication questions Thank You, Aure Muhammad CPhT Teacher Dancing III [facility] ([facility]) documented in this encounter Plan of Treatment Upcoming Encounters Date Type Department Care Team (Late st Contact Info) Description 04/27/2025 10:00 AM EDT Telemedicine Pulmonary Medicine, [address] [place] [address] Reuben Hidalgo MD [facility] [address] [facility] [place] [address] Health Maintenance Due Date Last Done Comments DISCUSS TOBACCO CESSATION (REFER TO SMARTSET #1899) 1970 HIV Screening 1984 Hepatitis C Screening [...] unspecified documented in this encounter Care Teams Appliance Painter And Refinisher Relationship Specialty Start Date End Date Jesse Palomares MD [address] [place] [address] [place] [id number] PCP - General Family Medicine 08/23/14 documented as of this encounter
--- OUTSIDE RECORDS SUMMARY | 2024-05-15 07:28 | External Medical Summary | Summary of Care ---
Author Name Unknown Organization [facility] Address [address] [facility] [address] Phone [phone] Care Team Providers Care Library Historian Name Role Phone Jesse Palomares MD Primary Care Provide r Reason for Visit * Reason Comments eRx-Medication Refill Encounter Details Date Type Department Care Team (Late st Contact Info) Description 04/06/2024 Refill Allergy/Immunology Rodri Lanier [place] [address] [facility] [place] [address] Verona Maldonado PA-C [address] [facility] [place] [address] Allergies Active Allergy Reactions Criticality Noted Date Comments Diphenhydramine Hives Medium 04/24/2018 Varenicline Psych complications 02/15/2021 Fluticasone 03/21/2021 Throat irritation Montelukast 12/17/2019 depression Morphine Hives 02/01/2016 Sulfa Antibiotics Other (Please comment) 2008 Joint swellling Cetirizine 12/27/2019 Pt reported diffuse hives within 30 min documented as of this encounter (statuses as of 04/06/2024) Medications Medication Sig Dispensed Refills Start Date End Date Status EpiPen 2-Bernabe 0.3 MG/0.3ML Injection Solution Auto-injectorIndica tions:Urticaria Ok for generic, use as needed for anaphylactic reaction 2 Each 1 Active Albuterol Sulfate (2.5 MG/3ML) 0.083% Inhalation Nebulization Solution (Proventil)Indicati ons:Moderate persistent reactive airway disease with wheezing with acute exacerbation INHALE 1 VIAL VIA NEBULIZER EVERY 4 HOURS NEEDED FOR WHEEZING 300 mL 1 1 Active Ibuprofen 600 MG Oral Tablet (Motrin)Indications :Sprain and strain of left ankle Take 1 Tablet by mouth every 6 hours as needed (pain). with food for pain 40 Tablet 1 2 Active Phenazopyridine HCl 100 MG Oral Tablet (Pyridium)Indicatio ns:Left sided abdominal pain,Renal stone Take by mouth 1 Tablet as needed in the morning AND 1 Tablet as needed at noon AND 1 Tablet as needed in the evening for Pain, Moderate. 10 Tablet 2 Active Qvar RediHaler 80 MCG/ACT Inhalation Aerosol Breath Activated (Beclomethasone Diprop HFA)Indications:GRADE AND CENTER MARKER D, group A, by GOLD 2017 classification (HCC) INHALE BY MOUTH 2 PUFFS IN THE MORNING AND 2 PUFFS BEFORE BEDTIME. 10.6 g 5 3 Active Stiolto Respimat 2.5-2.5 MCG/ACT Inhalation Aerosol Solution (Tiotropium-Olodate rol)Indications:GRADE AND CENTER MARKER D, mild (HCC) INHALE 2 PUFFS BY MOUTH EVERY DAY 12 g 3 3 Active Albuterol Sulfate HFA 108 (90 Base) MCG/ACT Inhalation Aerosol Solution INHALE 2 PUFFS BY MOUTH EVERY 4 HOURS NEEDED FOR COUGH, SHORTNESS OF BREATH OR WHEEZING. SHAKE CAN FOR 10 SECONDS BEFORE EACH PUFF 6.7 g 3 4 Active Albuterol Sulfate HFA 108 (90 Base) MCG/ACT Inhalation Aerosol Solution INHALE 2 PUFFS BY MOUTH EVERY 4 HOURS NEEDED FOR COUGH, SHORTNESS OF BREATH OR WHEEZING. SHAKE CAN FOR 10 SECONDS BEFORE EACH PUFF 6.7 g 3 4 04/06/20 24 Discontinued documented as of this encounter (statuses as of 04/06/2024) Active Problems Problem Noted Date Diagnosed Date [...] as of this encounter (statuses as of 04/06/2024) Resolved Problems Problem Noted Date Diagnosed Date [...] as of this encounter (statuses as of 04/06/2024) Immunizations Name Administration Dates Next Due Pneumococcal [...] encounter Miscellaneous Notes * Telephone Encounter - Joby Rivas MD - 04/06/2024 11:28 AM EDTSigned Prescriptions: Disp Refills Albuterol Sulfate HFA 108 (90 Base) MCG/AC*6.7 g 3 Sig: INHALE 2 PUFFS BY MOUTH EVERY 4 HOURS NEEDED FOR COUGH, SHORTNESS OF BREATH OR WHEEZING. SHAKE CAN FOR 10 SECONDS BEFORE EACH PUFF Authorizing Provider: JOBY RIVAS * Telephone Encounter - Flor Peck LPN - 04/06/2024 11:24 AM EDTPending Prescriptions: Disp Refills Albuterol Sulfate HFA 108 (90 Base) MCG/AC* 3 Sig: INHALE 2 PUFFS BY MOUTH EVERY 4 HOURS NEEDED FOR COUGH, SHORTNESS OF BREATH OR WHEEZING. SHAKE CAN FOR 10 SECONDS BEFORE EACH PUFF * Telephone Encounter - Flor Peck LPN - 04/06/2024 11:24 AM EDT Pending Prescriptions: Disp Refills Albuterol Sulfate HFA 108 (90 Base) MCG/A* 3 Sig: INHALE 2 PUFFS BY MOUTH EVERY 4 HOURS NEEDED FOR COUGH, SHORTNESS OF BREATH OR WHEEZING. SHAKE CAN FOR 10 SECONDS BEFORE EACH PUFF Last Visit: 05/14/2022 (in office), 01/23/2021 (telemedicine) Next Visit: Visit date not found Last date the medication was ordered: 10/22/23. Health Maintenance Topic Date Due DISCUSS TOBACCO CESSATION (REFER TO SMARTSET #3290) Never done HIV Screening Never done Hepatitis C Screening Never done O2 ASSESSMENT COMPLETED IN PAST YEAR FOR COPD Never done Hepatitis B Vaccine (1 of 3 - 19+ 3-dose series) Never done Colorectal Cancer Screening Never done Depression Screening 04/28/2019 Zoster Vaccines (1 of 2) Never done Diabetes Screening 07/04/2019 Mammogram 04/21/2020 Pneumococcal Vaccine: Pediatrics (0 to 5 Years) and At-Risk Patients (6 to 64 Years) (2 of 2 - PCV)08/18/2020 DTaP,Tdap,and Td Vaccines (2 - Td or Tdap) 08/16/2021 Lipid Panel 01/21/2022 COVID-19 Vaccine (1 - season) Never done *COPD SEVERITY VERIFIED BY PFT Never done *CXR OR CT FOR COPD EVER Never done *SPIROMETRY ONCE FOR ASTHMA-ADULT Never done Influenza Vaccine (FLU shot) (1) 05/16/2024 Alpha-1 Antitrypsin Completed Lung Cancer Screening Completed MENINGOCOCCAL (MENACTRA/MENVEO) Aged Out HPV (Gardasil) Vaccine Aged Out Pap Smear Discontinued Labs: Lab Results Component Value Date/Time CREATININE - [facility] 0.5 08/12/2011 09:55 AM CREATININE-OUTSIDE LAB 0.58 (A) 07/04/2016 12:00 AM Lab Results Component Value Date/Time POTASSIUM - [facility] 4.0 08/12/2011 09:55 AM POTASSIUM-OUTSIDE LAB 3.7 07/04/2016 12:00 AM No results found for: "TSH" Lab Results Component Value Date/Time LDL (CALCULATED)-OUTSIDE LAB 161 (A) 07/04/2016 12:00 AM LDL CHOLESTEROL (CALCULATED) - [facility] 121 01/21/2017 09:30 AM LDL CHOLESTEROL (CALCULATED) - [facility] 111 01/18/2015 08:35 AM LDL CHOLESTEROL (DIRECT MEASURE) - [facility] NOT APPLICABLE 01/21/2017 09:30 AM LDL CHOLESTEROL (DIRECT MEASURE) - [facility] NOT APPLICABLE 01/18/2015 08:35 AM Lab Results Component Value Date/Time ALT - [facility] 11 08/12/2011 09:55 AM ALTERNARIA IGE - [facility] <0.20 02/22/2022 10:02 AM Hemoglobin AIC Results: No results found for: "HEMOGLOBIN A1C" documented in this encounter Plan of Treatment Health Maintenance Due Date Last Done Comments DISCUSS TOBACCO CESSATION (REFER TO SMARTSET #3906) 1970 HIV Screening 1984 Hepatitis C Screening [...] Additional history exists COVID-19 Vaccine ( - 2022-24 season) 2023 *COPD SEVERITY VERIFIED BY PFT 03/28/2024 *CXR OR CT FOR COPD EVER 03/28/2024 *SPIROMETRY ONCE FOR ASTHMA-ADULT 03/28/2024 Influenza Vaccine (FLU shot) (#1) 2024 07/07/2019 [...] filedocumented as of this encounter Care Teams Library Historian Relationship Specialty Start Date End Date Jesse Palomares MD [address] [place] [address] [place] [phone] PCP - General Family Medicine 08/23/14 documented as of this encounter
--- OUTSIDE RECORDS SUMMARY | 2024-05-15 07:28 | External Medical Summary | Summary of Care ---
Author Name Unknown Organization [facility] Address [address] [facility] [place] [address] Phone [phone] Care Team Providers Care Senior Business Process Analyst Name Role Phone Jesse Palomares MD Primary Care Provide r Reason for Visit * Reason Onset Date Comments Medication Question 04/28/2024 Advice 04/28/2024 Encounter Details Date Type Department Care Team (Late st Contact Info) Description 04/28/2024 Telephone Pulmonary Medicine [facility] [address] [phone] Reuben Woodson MD [address] [place] [phone] Medication Question; Advice Allergies Active Allergy Reactions [...] Miscellaneous Notes * Telephone Encounter - Alisa Delgadillo LPN - 04/29/2024 3:41 PM EDT I called the pt back and answered her questions. * Telephone Encounter - Ayah Phan OSA - 04/29/2024 3:06 PM EDT Patient call back to speak To the Nurse, she ask if they can contact her back at [phone]. Please advice * Addendum Note - Alisa [...] medication questions Thank You, Aure Muhammad CPhT Player Development Executive III [facility] ([facility]) documented in this encounter Plan of Treatment Upcoming Encounters Date Type Department Care Team (Late st Contact Info) Description 04/27/2025 10:00 AM EDT Telemedicine Pulmonary Medicine, [facility] [address] [facility] [place] [address] Reuben Woodson MD [address] [facility] [place] [address] Health Maintenance Due Date Last Done Comments DISCUSS TOBACCO CESSATION (REFER TO SMARTSET #[id number]) 1970 HIV Screening 1984 Hepatitis C Screening [...] unspecified documented in this encounter Care Teams Senior Business Process Analyst Relationship Specialty Start Date End Date Jesse Palomares MD [address] [place] [address] [place] [phone] PCP - General Family Medicine 08/23/14 documented as of this encounter
--- OUTSIDE RECORDS SUMMARY | 2024-05-15 07:28 | External Medical Summary | Summary of Care ---
Author Name Unknown Organization [facility] Address [address] [facility] [address] Phone [phone] Care Team Providers Care Electronic Prepress Technician Name Role Phone Jesse Palomares MD Primary Care Provide r Reason for Visit * Reason Onset Date Comments Medication Question 04/28/2024 Encounter Details Date Type Department Care Team (Late st Contact Info) Description 04/28/2024 Telephone Pulmonary Medicine [facility] T[facility] [address] [phone] Reuben Woodson MD [address] [place] [phone] Medication Question Allergies Active Allergy Reactions Criticality Noted Date [...] encounter Miscellaneous Notes * Addendum Note - Alisa Delgadillo LPN [...] with medication questions Thank You, Aure Muhammad [facility] Director Of Maternity Services III [facility] ([facility]) documented in this encounter Plan of Treatment Upcoming Encounters Date Type Department Care Team (Late st Contact Info) Description 04/27/2025 10:00 AM EDT Telemedicine Pulmonary Medicine, [address] [place] [address] Reuben Woodson MD [address] [place] [place] [phone] Health Maintenance Due Date Last Done Comments DISCUSS TOBACCO CESSATION (REFER TO SMARTSET #7343) 1970 HIV Screening 1984 Hepatitis C Screening [...] Additional history exists COVID-19 Vaccine (1 - 2022- season) 2023 Influenza Vaccine (FLU [...] unspecified documented in this encounter Care Teams Electronic Prepress Technician Relationship Specialty Start Date End Date Jesse Palomares MD [address] [place] [address] [place] [phone] PCP - General Family Medicine 08/23/14 documented as of this encounter
--- OUTSIDE RECORDS SUMMARY | 2024-05-15 07:28 | External Medical Summary | Summary of Care ---
Author Name Unknown Organization [facility] Address [address] [facility] [address] Phone [phone] Care Team Providers Care Second Baker Name Role Phone Jesse Palomares MD Primary Care Provide r Reason for Visit * Reason Onset Date Comments Medication Question 04/28/2024 Encounter Details Date Type Department Care Team (Late st Contact Info) Description 04/28/2024 Telephone Pulmonary Medicine [facility] T[facility] [address] [place] [phone] Reuben Woodson MD [address] [phone] Medication Question Allergies Active Allergy Reactions Criticality Noted Date Comments Diphenhydramine Hives Medium 04/24/2018 Varenicline Psych complications 02/15/2021 Fluticasone 03/21/2021 Throat irritation Montelukast 12/17/2019 depression Morphine Hives 02/01/2016 Sulfa Antibiotics Other (Please comment) 2008 Joint swellling Cetirizine 12/27/2019 Pt reported diffuse hives within 30 min documented as of this encounter (statuses as of 04/28/2024) Medications Medication Sig Dispensed Refills Start Date [...] as of this encounter (statuses as of 04/28/2024) Active Problems Problem Noted Date Diagnosed Date [...] as of this encounter (statuses as of 04/28/2024) Resolved Problems Problem Noted Date Diagnosed Date [...] as of this encounter (statuses as of 04/28/2024) Immunizations Name Administration Dates Next Due Pneumococcal [...] encounter Miscellaneous Notes * Telephone Encounter - Aure Muhammad CPhT - 04/28/2024 9:07 AM EDT Patient transferred to Pulmonary office for assistance with medication questions Thank You, Aure Muhammad CPhT Director Of Digital Marketing III [facility] ([facility]) documented in this encounter Plan of Treatment Health Maintenance Due Date Last Done Comments DISCUSS TOBACCO CESSATION (REFER TO SMARTSET #3295) 1970 HIV Screening 1984 Hepatitis C Screening [...] filedocumented as of this encounter Care Teams Second Baker Relationship Specialty Start Date End Date Jesse Palomares MD [address] [place] [address] [place] [phone] PCP - General Family Medicine 08/23/14 documented as of this encounter
--- OUTSIDE RECORDS SUMMARY | 2024-05-15 07:28 | External Medical Summary | Summary of Care ---
Author Name Unknown Organization [facility] Address [address] [facility] [address] Phone [phone] Care Team Providers Care Cinder Snapper Name Role Phone Jesse Palomares MD Primary Care Provide r Reason for Visit * Reason Onset Date Comments Medication Question 04/28/2024 Encounter Details Date Type Department Care Team (Late st Contact Info) Description 04/28/2024 Telephone Pulmonary Medicine [facility] [address] [phone] Reuben Woodson MD [address] [phone] Medication Question Allergies Active Allergy Reactions Criticality [...] medication questions Thank You, Aure Muhammad CPhT Professor Of Astronomy III [facility] ([facility]) documented in this encounter Plan of Treatment Upcoming Encounters Date Type Department Care Team (Late st Contact Info) Description 04/27/2025 10:00 AM EDT Telemedicine Pulmonary Medicine, [facility] [address] [facility] [place] [address] Reuben Woodson MD [address] [place] [address] Health Maintenance Due Date Last Done Comments DISCUSS TOBACCO CESSATION (REFER TO SMARTSET #8500) 1970 HIV Screening 1984 Hepatitis C Screening [...] filedocumented as of this encounter Care Teams Cinder Snapper Relationship Specialty Start Date End Date Jesse Palomares MD [address] [place] [address] [place] [phone] PCP - General Family Medicine 08/23/14 documented as of this encounter
[2024-05-15] MEDS: ALBUT/IPRATROP 3MG/0.5MG NEB 3 ML VIAL NEB ONE ×2 (08:06→09:34)
[2024-05-15 08:10] LABS: Basophils # (auto) 0.04 K/uL (0.00-0.20); Basophils % (auto) 0.4 %; Eosinophils # (auto) 0.29 K/uL (0.00-0.50); Eosinophils % (auto) 2.8 %; Hematocrit (blood only) 47.1 % (37.0-47.0); Hemoglobin 15.6 g/dl (12.0-16.0); Immature Granulocytes # (auto) 0.03 K/uL (0.01-0.20); Immature Granulocytes % (auto) 0.3 %; Lymphocytes # (auto) 1.36 K/uL (1.20-3.40); Mean Corpuscular Hemoglobin 28.7 pg (25.0-34.0); Mean Corpuscular Hgb Conc 33.1 g/dL (32.0-36.0); Mean Corpuscular Volume 86.6 fL (80.0-100.0); Mean Platelet Volume 9.2 fL (9.4-12.4); Monocytes # (auto) 0.57 K/uL (0.11-0.59); Monocytes % (auto) 5.5 %; Neutrophils # (auto) 8.16 K/uL (1.40-6.50); Platelet Count 305 K/uL (130-400); RDW Coefficient of Variation 13.1 % (11.5-14.5); Red Blood Count 5.44 M/uL (4.20-5.40); White Blood Count 10.45 K/ul (4.8-10.8)
--- NOTE | 2024-05-15 08:10 | Emergency Department Note ---
Impression & Plan Acute dyspnea, Acute exacerbation of chronic obstructive airways disease ED Provider Note NAME: LORI RODRIGUEZ AGE: 53 SEX: Female INFORMANT: Patient ED PROVIDER(S): Dez Badillo MD CHIEF COMPLAINT: Difficulty breathing PLAN: Disposition: Admitted Outpatient prescription management: none Referral: None MEDICAL DECISION MAKING: Patient presented because of difficulty breathing. She was quite dyspneic and had increased respiratory effort, tachypnea, and wheezing. O2 saturations were borderline despite receiving Solu-Medrol and a DuoNeb prehospital. Patient was started on hour-long DuoNeb. BioFire, chest x-ray, and blood work performed. ECG showed tachycardia without ischemia. Patient had unremarkable laboratory findings. Chest x-ray was negative for pneumothorax or pneumonia. Bio fire testing was negative. On reassessment the patient was still having wheezing and increased work of breathing albeit improved. A second hour-long treatment was initiated. Patient was given IV magnesium. Discussed the need for admission and patient in agreement. [facility], Dr. Kelly. Patient was evaluated and admitted for further management Care/management discussed with: mental health program manager Level of care consideration(s): After review of the information above and other included data, I feel the patient requires escalation of care to admission Triage Nursing notes: reviewed and agree them. Vital Signs: reviewed and remarkable for tachypnea and tachycardia Additional History obtained from: none Chronic Medical/Social Conditions affecting care:/COPD Prior/ Outside/ External records reviewed: none Differential Diagnosis: Reactive airway disease, pneumonia, pneumothorax, COPD, CHF, infections, cardiac ischemia, pulmonary embolism, musculoskeletal, gastrointestinal, as well as other pathologies. Diagnostics, independently interpreted by me: ECG: Twelve-lead ECG reveals sinus tachycardia at 108 bpm. No evidence of pericarditis, ischemia, ectopy, or dysrhythmia. Cardiac Monitoring: Cardiac monitoring ordered by me: The patient was placed on continuous cardiac monitoring and observed. It revealed a sinus tachycardic rhythm at 104 beats per minute without ectopy or evidence of dysrhythmia. Medical decision rules: none Imaging studies: Chest x-ray. Findings: A chest x-ray was performed and revealed no pneumothorax, effusion, infiltrate, pulmonary edema, free air under the diaphragm, or wide mediastinum. Impression: No acute disease. HPI: 53 year old Female arrives for evaluation of difficulty breathing. This started about a month ago and is waxing and waning. Patient notes over the last week its gotten a lot worse. She was seen by her descriptive catalog librarian at [facility] this month and started on prednisone and antibiotic. She notes finishing that medication. At that time it did help but then she got worse. The patient also notes the following associated symptoms, fatigue and wheezing. The patient has been given a DuoNeb and Solu-Medrol by EMS for relieving factors. Current pain is rated as 0/10. Patient has a history of COPD/asthma. Patient also notes history of smoking. Pt denies LOC, headache, fevers, chills, diaphoresis, visual changes, neck pain, chest pain, sick contacts, nausea, vomiting, abdominal pain, back pain, melena, hematochezia, urinary symptoms, numbness, weakness, lymphadenopathy, rash, or other complaints.. PAST MEDICAL HISTORY: See Below, asthma/COPD PAST SURGICAL HISTORY: See Below, SOCIAL HISTORY: See Below, smoker HOME MEDICATIONS: See Below ALLERGIES: See Below VITALS: See Below PHYSICAL EXAMINATION: GENERAL: Awake, alert, very dyspneic-appearing, in no distress HENT: Normocephalic, atraumatic. Oropharynx unremarkable. EYES: Normal conjunctiva. Sclera non-icteric. NECK: Inspection normal. Non-tender. Supple. No nuchal rigidity. FROM. No masses. RESPIRATORY: Decreased air movement bilaterally with expiratory wheezes present. Accessory muscle use and conversational dyspnea. Increased respiratory effort. CARDIAC: Tachycardic rate. Normal rhythm. No murmurs. No rubs. Extremities warm and well perfused. Pulses equal. No JVD. GI: Soft, non-distended. No tenderness to palpation. No rebound or guarding. No masses. RECTAL: Deferred. MUSCULOSKELETAL: Atraumatic. Chest examination reveals no tenderness. The back is symmetrical on inspection without obvious abnormality. There is no CVA tenderness to palpation. No joint edema. LOWER EXTREMITIES: Calves are equal size bilaterally and non-tender. No edema. No discoloration. NEURO: Normal sensorium. No sensory or motor deficits noted. SKIN: No rash or jaundice noted. PROCEDURES: none CRITICAL CARE: none OBSERVATION NOTE: none Past Med/Surg History Problem List (Updated 05/15/24 @ 10:13 by Cristine Cj, PA-C) Tobacco use disorder Asthma exacerbation Acute exacerbation of chronic obstructive airways disease (Acute) Acute dyspnea (Acute) Asthma (Chronic) Environmental allergies (Chronic) Medical History (Updated 05/15/24 @ 10:13 by Cristine Corona PA-C) Nephrolithiasis Generalized anxiety disorder Osteoarthritis of pelvic region Surgical History (Updated 05/15/24 @ 10:13 by Cristine Corona PA-C) History of section History of appendectomy History of partial hysterectomy History of nasal septoplasty Social History Smoking Status: Current every day smoker Tobacco Type: Cigarettes Cigarettes Per Day: 30-40; Do You Dip or Chew Tobacco: No; Tobacco Cessation Education Requested by Patient: No Hx Alcohol Use: No Hx Substance Use: No Preferred Language: Lithuanian Communication Ability: Effective Copy Operator Required: Yes Beliefs That Will Affect Care: None Current Living Situation: Spouse Other Information That Helps Us Care for You: No Feels Safe at Home: Yes Assistive Devices: Glasses Allergies Allergies Allergy/AdvReac Type Severity Reaction Status Date / Time cetirizine Allergy Intermediate hives Verified 09/16/19 05:46 diphenhydramine Allergy Intermediate RASH Verified 09/16/19 05:46 morphine Allergy Unknown RASH Verified 09/16/19 05:46 Sulfa (Sulfonamide Allergy Unknown Unknown Verified 09/16/19 05:46 Antibiotics) Home Meds Home Medications Medication Instructions Recorded Confirmed albuterol sulfate 90 mcg/actuation 2 puff inhalation Q4 PRN cough,sob 09/16/19 05/15/24 aerosol inhaler beclomethasone dipropionate 80 80 mcg inhalation BID 09/16/19 05/15/24 mcg/actuation HFA breath activated aerosol (Qvar RediHaler) epinephrine 0.3 mg/0.3 mL 0.3 mg IM UD PRN Allergic Reaction 09/16/19 05/15/24 injection, auto-injector (EpiPen) tiotropium 2.5 mcg-olodaterol 2.5 2 puff inhalation DAILY 09/16/19 05/15/24 mcg/actuation mist for inhalation (Stiolto Respimat) Previous Rx's Medication Instructions Recorded albuterol sulfate 2.5 mg/3 mL 2.5 mg (3 mL) inhalation Q4H #180 09/16/19 (0.083 %) solution for nebulization mL Results & Data (ED) Vital Signs Vital Signs - 24 hr 05/15/24 07:30 05/15/24 07:30 05/15/24 07:44 Temperature 36.8 C Temperature Source Oral Pulse Rate 104 H Pulse Rate [Apical] Pulse Rhythm Regular Pulse Rhythm [Apical] Pulse Strength Normal Pulse Strength [Apical] Respiratory Rate 30 H Respiratory Effort / Characteristics Short of Breath Short of Breath Respiratory Depth Normal Respiratory Pattern Regular Regular Blood Pressure 140/83 Blood Pressure [Right Arm] Blood Pressure Mean 102 Blood Pressure Mean [Right Arm] Blood Pressure Position Sitting Pulse Oximetry 91 89 L Oxygen Delivery Method Room Air Room Air Room Air Oxygen Flow Rate Sepsis Recent Fever Within 48 Hours No Sepsis New/Unexplained Change in Mental Status No Sepsis Action Taken by Nursing Physician Notified 05/15/24 07:44 05/15/24 08:22 05/15/24 08:30 Temperature Temperature Source Pulse Rate 97 H Pulse Rate [Apical] 107 H Pulse Rhythm Pulse Rhythm [Apical] Regular Pulse Strength Pulse Strength [Apical] Normal Respiratory Rate 28 H Respiratory Effort / Characteristics Short of Breath Respiratory Depth Respiratory Pattern Regular Blood Pressure Blood Pressure [Right Arm] 117/71 Blood Pressure Mean Blood Pressure Mean [Right Arm] 86 Blood Pressure Position Pulse Oximetry 93 100 Oxygen Delivery Method Nasal Cannula Nebulizer Oxygen Flow Rate 2 8 Sepsis Recent Fever Within 48 Hours Sepsis New/Unexplained Change in Mental Status Sepsis Action Taken by Nursing 05/15/24 09:00 Temperature Temperature Source Pulse Rate Pulse Rate [Apical] Pulse Rhythm Pulse Rhythm [Apical] Pulse Strength Pulse Strength [Apical] Respiratory Rate Respiratory Effort / Characteristics Respiratory Depth Respiratory Pattern Blood Pressure Blood Pressure [Right Arm] Blood Pressure Mean Blood Pressure Mean [Right Arm] Blood Pressure Position Pulse Oximetry 91 Oxygen Delivery Method Nasal Cannula Oxygen Flow Rate 2 Sepsis Recent Fever Within 48 Hours Sepsis New/Unexplained Change in Mental Status Sepsis Action Taken by Nursing Laboratory Data 05/15/24 07:53 05/15/24 07:53 Lab Results 05/15/24 05/15/24 Range/Units 07:49 07:53 WBC 10.45 (4.8-10.8) K/ul RBC 5.44 H (4.20-5.40) M/uL Hgb 15.6 (12.0-16.0) g/dl Hct 47.1 H (37.0-47.0) % MCV 86.6 (80.0-100.0) fL MCH 28.7 (25.0-34.0) pg MCHC 33.1 (32.0-36.0) g/dL RDW Std Deviation 41.0 (36.4-46.3) fL RDW Coeff of Jelena 13.1 (11.5-14.5) % Plt Count 305 (130-400) K/uL MPV 9.2 L (9.4-12.4) fL Immature Gran % (Auto) 0.3 % Neut % (Auto) 78.0 % Lymph % (Auto) 13.0 % [place] % (Auto) 5.5 % Eos % (Auto) 2.8 % Baso % (Auto) 0.4 % Neut # (Auto) 8.16 H (1.40-6.50) K/uL Lymph # (Auto) 1.36 (1.20-3.40) K/uL [place] # (Auto) 0.57 (0.11-0.59) K/uL Eos # (Auto) 0.29 (0.00-0.50) K/uL Baso # (Auto) 0.04 (0.00-0.20) K/uL Immature Gran # (Auto) 0.03 (0.01-0.20) K/uL Sodium 141 (136-145) mmol/L Potassium 4.2 (3.5-5.1) mmol/L Chloride 107 (98-107) mmol/L Carbon Dioxide 28 (21-32) mmol/L Anion Gap 6 (3-11) BUN 10 (6-23) mg/dl Creatinine 0.48 L (0.6-1.2) mg/dl Est Cr Clr Drug Dosing 133.3 ml/min Est GFR ( Amer) 128.9 ml/min Est GFR (Non-Af Amer) 111.2 ml/min BUN/Creatinine Ratio 20.8 H (10-20) Glucose 101 H (70-99(Fasting)) mg/dl Calcium 9.5 (8.6-10.3) mg/dl Total Bilirubin 0.5 (0.2-1.0) mg/dl AST 21 (13-39) U/L ALT 26 (7-52) U/L Alkaline Phosphatase 84 (34-104) U/L Total Protein 7.2 (6.0-8.3) gm/dl Albumin 4.5 (3.4-5.0) gm/dl Globulin 2.7 (2.5-4.0) gm/dl Albumin/Globulin Ratio 1.7 (0.9-2) Adenovirus (PCR) Not Detected (NotDetected) B. pertussis DNA (PCR) Not Detected (NotDetected) B.parapertussis DNA PCR Not Detected (NotDetected) C. pneumoniae DNA (PCR) Not Detected (NotDetected) Coronavirus OC43 (PCR) Not Detected (NotDetected) Coronavirus HKU1 (PCR) Not Detected (NotDetected) Coronavirus 229E (PCR) Not Detected (NotDetected) SARS-CoV-2 (PCR) Not Detected (NotDetected) Coronavirus NL63 (PCR) Not Detected (NotDetected) Human Metapneumovir PCR Not Detected (NotDetected) Influenza Type A (PCR) Not Detected (NotDetected) Influenza Type B (PCR) Not Detected (NotDetected) M. pneumoniae (PCR) Not Detected (NotDetected) Parainfluenza 1 (PCR) Not Detected (NotDetected) Parainfluenza 2 (PCR) Not Detected (NotDetected) Parainfluenza 3 (PCR) Not Detected (NotDetected) Parainfluenza 4 (PCR) Not Detected (NotDetected) RSV (PCR) Not Detected (NotDetected) Entero/Rhino (PCR) Not Detected (NotDetected) Administered Medications Albuterol (Albut/Ipratrop 3mg/0.5mg Neb 3 Ml Vial) 3 ml NEB QIDR [facility]; Protocol Stop: 06/14/24 10:59 Last Admin: 05/15/24 15:31 Dose: 3 ml Documented By: ОЛЕГ Admin: 05/15/24 11:20 Dose: Not Given Documented By: IRINEO Budesonide (Budesonide 0.5 Mg/2 Ml Vial (Pulmicort)) 0.5 mg NEB BIDR JAYLA Stop: 06/14/24 10:14 Last Admin: 05/15/24 11:20 Dose: 0.5 mg Documented By: IRINEO Formoterol Fumarate (Formoterol 20 Mcg/2 Ml Vial) 20 mcg NEB BIDR JAYLA Stop: 06/14/24 10:14 Last Admin: 05/15/24 11:20 Dose: 20 mcg Documented By: IRINEO Discontinued Medications Albuterol (Albut/Ipratrop 3mg/0.5mg Neb 3 Ml Vial) 12 ml NEB ONE ONE; Protocol Stop: 05/15/24 07:33 Last Admin: 05/15/24 08:06 Dose: 12 ml Documented By: SHERMAN Albuterol (Albut/Ipratrop 3mg/0.5mg Neb 3 Ml Vial) 12 ml NEB ONE ONE; Protocol Stop: 05/15/24 09:26 Last Admin: 05/15/24 09:34 Dose: 12 ml Documented By: KAELA Famotidine (Famotidine 20 Mg Tab) 20 mg PO NOW STA Stop: 05/15/24 10:20 Last Admin: 05/15/24 11:38 Dose: 20 mg Documented By: EMILY Guaifenesin/Dextromethorphan (Guaifenesin/Dextrom Syrup 200mg/20mg 10ml Udc) 10 ml PO NOW STA Stop: 05/15/24 10:20 Last Admin: 05/15/24 11:38 Dose: 10 ml Documented By: EMILY Magnesium Sulfate/Dextrose (Magnesium Sulfate / D5w) 1 gm in 100 mls @ 50 mls/hr IV ONE ONE Stop: 05/15/24 11:24 Last Infusion: 05/15/24 11:44 Dose: Infused Documented By: Admin: 05/15/24 09:34 Dose: 50 mls/hr Documented By: KAELA Methylprednisolone (Methylprednisolone 125 Mg/2 Ml Vial) 40 mg IV NOW STA Stop: 05/15/24 10:21 Last Admin: 05/15/24 11:40 Dose: 40 mg Documented By: EMILY Imaging Data Radiologist's Impression: Chest X-Ray 05/15/24 07:33 XR chest 1V portable CLINICAL HISTORY: Dyspnea. COMPARISON STUDY: Chest radiograph and chest CT September 16, 2019. FINDINGS: Lung volumes are normal. Lungs are clear. There is no pneumothorax or pleural effusion. Cardiac size is normal. Mediastinal contours are normal. There is no evidence for pulmonary edema. IMPRESSION: No acute cardiopulmonary findings. ACT 112: Negative or not required by law. Electronically signed by: Farhan Acevedo M.D. 05/15/2024 8:33 AM Discharge Plan Visit Data Chief Complaint: Shortness of Breath/Dyspnea Stated Complaint: RESP. DIFFICULTY ED Provider: Dez Badillo Discharge Problem: Acute dyspnea, Acute exacerbation of chronic obstructive airways disease Patient Disposition: Admitted As Inpatient Discharge Instructions Interventions: ED Discharge Assessment Last Done: 05/15/24 13:21
[2024-05-15 08:28] LABS: Albumin Globulin Ratio 1.7 (0.9-2); Albumin Level 4.5 gm/dl (3.4-5.0); BUN Creatinine Ratio 20.8 (10-20); Bilirubin,Total 0.5 mg/dl (0.2-1.0); Calcium 9.5 mg/dl (8.6-10.3); Creatinine Clr Calc Pharmacy 133.3 ml/min; Est GFR (African American) 128.9 ml/min; Est GFR (Non-African American) 111.2 ml/min; Globulin 2.7 gm/dl (2.5-4.0); Potassium 4.2 mmol/L (3.5-5.1); Total Protein 7.2 gm/dl (6.0-8.3)
--- NOTE | 2024-05-15 08:35 | XRay Report ---
XR chest 1V portable CLINICAL HISTORY: Dyspnea. COMPARISON STUDY: Chest radiograph and chest CT September 16, 2019. FINDINGS: Lung volumes are normal. Lungs are clear. There is no pneumothorax or pleural effusion. Car diac size is normal. Mediastinal contours are normal. There is no evidence for pulmonary edema. IMPRESSION: No acute cardiopulmonary findings. ACT 112: Negative or not required by law. Electronically signed by: Farhan Acevedo M.D. 05/15/2024 8:33 AM
[2024-05-15 09:01] LABS: Adenovirus PCR Not Detected (NotDetected); Bordetella parapertussis PCR Not Detected (NotDetected); Bordetella pertussis PCR Not Detected (NotDetected); Chlamydia pneumoniae PCR Not Detected (NotDetected); Coronavirus 229E PCR Not Detected (NotDetected); Coronavirus CoV-2 (COVID19)PCR Not Detected (NotDetected); Coronavirus HKU1 PCR Not Detected (NotDetected); Coronavirus NL63 PCR Not Detected (NotDetected); Coronavirus OC43PCR Not Detected (NotDetected); Human Metapneumovirus PCR Not Detected (NotDetected); Influenza A PCR Not Detected (NotDetected); Influenza B PCR Not Detected (NotDetected); Mycoplasma pneumoniae PCR Not Detected (NotDetected); Parainfluenza Virus 1 PCR Not Detected (NotDetected); Parainfluenza Virus 2 PCR Not Detected (NotDetected); Parainfluenza Virus 3 PCR Not Detected (NotDetected); Parainfluenza Virus 4 PCR Not Detected (NotDetected); Respiratory Syncytial VirusPCR Not Detected (NotDetected); Rhinovirus/Enterovirus PCR Not Detected (NotDetected)
[2024-05-15] MEDS: MAGNESIUM SULFATE / D5W 1 GM/100 ML BAG IV ONE (09:34)
--- NOTE | 2024-05-15 09:54 | History & Physical Report ---
Date of Service May 15, 2024 Assessment & Plan (1) Asthma exacerbation: Plan: This is a 53 y/o female with asthma/COPD, tobacco use disorder, and anxiety who presented to the ED today with worsening asthma symptoms. She was given a course of prednisone and antibiotics as an outpatient with initial improvement but symptoms subsequently worsened after completing these medications. In the ED, she was found to be hypoxic in the upper 80s on room air but has improved on 2L of oxygen. She was given Solu-Medrol 125 mg IV en route as well as an Atrovent neb. She has been using albuterol inhaler and nebs at home without significant relief. Respiratory panel negative, no leukocytosis. - Admit to PCU - Continue supplemental O2 for now - Continue IV steroids - Nebs scheduled (budesonide, Duoneb) and PRN (Xopenex) - Labs in the AM - CBC, BMP, Mg, Phos - Anti-tussives (2) Tobacco use disorder: Plan: Smoking cessation encouraged Nicotine patch ordered (3) Environmental allergies: Plan Pt seen and reviewed with collaborating physician, Dr. Kelly. Plan of care discussed and as outlined above. Code status: Full code DVT Prophylaxis: Lovenox Admit to PCU Delma Corona PA-C History of Present Illness Chief Complaint: trouble breathing, cough Primary Care Provider: Jesse Palomares MD This is a 53 y/o female with asthma/COPD, tobacco use disorder, and anxiety who presented to the ED today with worsening asthma symptoms. She reports that the initial symptoms started about a month ago and were most upper respiratory with head congestion, nasal congestion, and rhinorrhea initially then developed the cough and wheezing. She was evaluated outpatient and given a course of prednisone and antibiotics with initial improvement. However, after finishing the medications, her symptoms again worsened before starting to improve again. However, over the last three days, symptoms are again worsening, which she thinks was triggered by exposure to allergens while cruzito tomatoes. Her cough that may be productive of clear phlegm. She denies fevers at any point with these symptoms. She has noted wheezing and has been using her albuterol nebs. She denies ST, N/V, chest pain, palpitations. Some muscle soreness related to coughing. Overall, just feels really tired and worn out. Appetite is at baseline. She smokes 1.5-2 PPD but decided to try quitting 36 hours ago. Has smoked intermittently since she was age 4. She reports taking her maintenance inhalers as prescribed. She was admitted in 2018 for similar symptoms. Allergies Allergy/AdvReac Type Severity Reaction Status Date / Time cetirizine Allergy Intermediate hives Verified 09/16/19 05:46 diphenhydramine Allergy Intermediate RASH Verified 09/16/19 05:46 morphine Allergy Unknown RASH Verified 09/16/19 05:46 Sulfa (Sulfonamide Allergy Unknown Unknown Verified 09/16/19 05:46 Antibiotics) Home Medications Medication Instructions Recorded Confirmed Type albuterol sulfate 2.5 mg/3 mL 2.5 mg (3 mL) inhalation Q4H #180 09/16/19 05/15/24 Rx (0.083 %) solution for nebulization mL albuterol sulfate 90 mcg/actuation 2 puff inhalation Q4 PRN cough,sob 09/16/19 05/15/24 History aerosol inhaler beclomethasone dipropionate 80 80 mcg inhalation BID 09/16/19 05/15/24 History mcg/actuation HFA breath activated aerosol (Qvar RediHaler) epinephrine 0.3 mg/0.3 mL 0.3 mg IM UD PRN Allergic Reaction 09/16/19 05/15/24 History injection, auto-injector (EpiPen) tiotropium 2.5 mcg-olodaterol 2.5 2 puff inhalation DAILY 09/16/19 05/15/24 History mcg/actuation mist for inhalation (Stiolto Respimat) Past Med/Surg History Problem List (Updated 05/15/24 @ 10:13 by Cristine Corona PA-C) Tobacco use disorder Asthma exacerbation Acute exacerbation of chronic obstructive airways disease (Acute) Acute dyspnea (Acute) Asthma (Chronic) Environmental allergies (Chronic) Medical History (Updated 05/15/24 @ 10:13 by Cristine Corona PA-C) Nephrolithiasis Generalized anxiety disorder Osteoarthritis of pelvic region Surgical History (Updated 05/15/24 @ 10:13 by Cristnie Corona PA-C) History of section History of appendectomy History of partial hysterectomy History of nasal septoplasty Social History Smoking Status: Current every day smoker Tobacco Type: Cigarettes Cigarettes Per Day: 30-40; Do You Dip or Chew Tobacco: No; Tobacco Cessation Education Requested by Patient: No Hx Alcohol Use: No Hx Substance Use: No Preferred Language: [place] Communication Ability: Effective 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 Results & Data Results & Data Vital Signs (Past 12 Hours) Vital Signs Temp Pulse Pulse Resp BP BP Pulse Ox 05/15/24 09:00 91 05/15/24 08:30 107 H 28 H 117/71 100 05/15/24 08:22 97 H 05/15/24 07:44 93 05/15/24 07:44 89 L 05/15/24 07:30 05/15/24 07:30 36.8 C 104 H 30 H 140/83 91 O2 Del Method O2 Flow Rate 05/15/24 09:00 Nasal Cannula 2 05/15/24 08:30 Nebulizer 8 05/15/24 08:22 05/15/24 07:44 Nasal Cannula 2 05/15/24 07:44 Room Air 05/15/24 07:30 Room Air 05/15/24 07:30 Room Air Laboratory Results Lab Results 05/15/24 05/15/24 Range/Units 07:49 07:53 WBC 10.45 (4.8-10.8) K/ul RBC 5.44 H (4.20-5.40) M/uL Hgb 15.6 (12.0-16.0) g/dl Hct 47.1 H (37.0-47.0) % MCV 86.6 (80.0-100.0) fL MCH 28.7 (25.0-34.0) pg MCHC 33.1 (32.0-36.0) g/dL RDW Std Deviation 41.0 (36.4-46.3) fL RDW Coeff of Jelena 13.1 (11.5-14.5) % Plt Count 305 (130-400) K/uL MPV 9.2 L (9.4-12.4) fL Immature Gran % (Auto) 0.3 % Neut % (Auto) 78.0 % Lymph % (Auto) 13.0 % [place] % (Auto) 5.5 % Eos % (Auto) 2.8 % Baso % (Auto) 0.4 % Neut # (Auto) 8.16 H (1.40-6.50) K/uL Lymph # (Auto) 1.36 (1.20-3.40) K/uL [place] # (Auto) 0.57 (0.11-0.59) K/uL Eos # (Auto) 0.29 (0.00-0.50) K/uL Baso # (Auto) 0.04 (0.00-0.20) K/uL Immature Gran # (Auto) 0.03 (0.01-0.20) K/uL Sodium 141 (136-145) mmol/L Potassium 4.2 (3.5-5.1) mmol/L Chloride 107 (98-107) mmol/L Carbon Dioxide 28 (21-32) mmol/L Anion Gap 6 (3-11) BUN 10 (6-23) mg/dl Creatinine 0.48 L (0.6-1.2) mg/dl Est Cr Clr Drug Dosing 133.3 ml/min Est GFR ( Amer) 128.9 ml/min Est GFR (Non-Af Amer) 111.2 ml/min BUN/Creatinine Ratio 20.8 H (10-20) Glucose 101 H (70-99(Fasting)) mg/dl Calcium 9.5 (8.6-10.3) mg/dl Total Bilirubin 0.5 (0.2-1.0) mg/dl AST 21 (13-39) U/L ALT 26 (7-52) U/L Alkaline Phosphatase 84 (34-104) U/L Total Protein 7.2 (6.0-8.3) gm/dl Albumin 4.5 (3.4-5.0) gm/dl Globulin 2.7 (2.5-4.0) gm/dl Albumin/Globulin Ratio 1.7 (0.9-2) Adenovirus (PCR) Not Detected (NotDetected) B. pertussis DNA (PCR) Not Detected (NotDetected) B.parapertussis DNA PCR Not Detected (NotDetected) C. pneumoniae DNA (PCR) Not Detected (NotDetected) Coronavirus OC43 (PCR) Not Detected (NotDetected) Coronavirus HKU1 (PCR) Not Detected (NotDetected) Coronavirus 229E (PCR) Not Detected (NotDetected) SARS-CoV-2 (PCR) Not Detected (NotDetected) Coronavirus NL63 (PCR) Not Detected (NotDetected) Human Metapneumovir PCR Not Detected (NotDetected) Influenza Type A (PCR) Not Detected (NotDetected) Influenza Type B (PCR) Not Detected (NotDetected) M. pneumoniae (PCR) Not Detected (NotDetected) Parainfluenza 1 (PCR) Not Detected (NotDetected) Parainfluenza 2 (PCR) Not Detected (NotDetected) Parainfluenza 3 (PCR) Not Detected (NotDetected) Parainfluenza 4 (PCR) Not Detected (NotDetected) RSV (PCR) Not Detected (NotDetected) Entero/Rhino (PCR) Not Detected (NotDetected) Diagnostic Findings Chest X-Ray 05/15/24 07:33 XR chest 1V portable CLINICAL HISTORY: Dyspnea. COMPARISON STUDY: Chest radiograph and chest CT September 16, 2019. FINDINGS: Lung volumes are normal. Lungs are clear. There is no pneumothorax or pleural effusion. Cardiac size is normal. Mediastinal contours are normal. There is no evidence for pulmonary edema. IMPRESSION: No acute cardiopulmonary findings. ACT 112: Negative or not required by law. Electronically signed by: Farhan Acevedo M.D. 05/15/2024 8:33 AM Medications Administered Magnesium Sulfate/Dextrose (Magnesium Sulfate / D5w) 1 gm in 100 mls @ 50 mls/hr IV ONE ONE Stop: 05/15/24 11:24 Last Admin: 05/15/24 09:34 Dose: 50 mls/hr Documented By: NRB Discontinued Medications Albuterol (Albut/Ipratrop 3mg/0.5mg Neb 3 Ml Vial) 12 ml NEB ONE ONE; Protocol Stop: 05/15/24 07:33 Last Admin: 05/15/24 08:06 Dose: 12 ml Documented By: NA Albuterol (Albut/Ipratrop 3mg/0.5mg Neb 3 Ml Vial) 12 ml NEB ONE ONE; Protocol Stop: 05/15/24 09:26 Last Admin: 05/15/24 09:34 Dose: 12 ml Documented By: NRB Supervising Physician Co-Signing Physician Notes 53-year-old lady with PMH of asthma and COPD who was recently treated for asthma exacerbation with steroid and antibiotic about a month ago and was having waxing and waning symptoms of asthma exacerbation came in because of worsening shortness of breath/increasing dry cough/increasing wheezing/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 She reports no sore throat, no fever. She reports some chest and abdominal pain due to constant coughing. She reports no acute changes in appetite/bowel/bladder habit. Plan of care and home medications reviewed with the patient at bedside. Labs reviewed, fairly done, no leukocytosis noted. CXR/respiratory pathogen panel with no acute findings. EKG with sinus tachycardia. Active problems: Asthma exacerbation: DuoNeb every 6H scheduled, Xopenox every 4 hours as needed, budesonide neb twice daily, formoterol neb twice daily, Solu-Medrol 40 mg IV 3 times daily {Down titrate with clinical improvement], famotidine while on increased dose of steroid, guaifenesin dextromethorphan for antitussive effect. consider pulm if worsening. Current smoker: smoking 1.5-2 ppd for "very long time". Quite about 2 days ago, pt states she will be quitting it, pt's effort was applauded and encouraged to continue to do so. will use nicotine patch while in here. On exam: GENERAL: Alert and oriented x3. NAD, on breathing treatment. HEENT: No pallor, no icterus. Pupils equal, round and reactive to light. Oral mucosa moist. NECK: No JVD, no neck masses. HEART: S1 and S2 heard. Regular rate and rhythm. Tachycardia. No murmur, no gallop. RESPIRATORY SYSTEM: Normal AP diameter. No accessory muscle use. extensive b/l wheezing, no crackles. ABDOMEN: Soft, bowel sounds present, nontender, no distention. CENTRAL NERVOUS SYSTEM: No facial droop. Speech is clear. Obeys simple commands. Moves extremities. EXTREMITIES: No edema, no erythema seen. I have seen and examined the patient and have discussed the case with the provider above. I agree with the assessment and plan as stated. (1) Asthma exacerbation Asthma persistence: persistent Asthma severity: mild Qualified Code(s): J45.31 - Mild persistent asthma with (acute) exacerbation
[2024-05-15] MEDS ORDERED: LEVALBUTEROL 1.25 MG/3 ML NEB NEB PRN (10:14)
[2024-05-15] MEDS: BUDESONIDE 0.5 MG/2 ML VIAL (PULMICORT) NEB SCH (11:20)
[2024-05-15] MEDS: ALBUT/IPRATROP 3MG/0.5MG NEB 3 ML VIAL NEB SCH (11:20)
[2024-05-15] MEDS: FORMOTEROL 20 MCG/2 ML VIAL NEB SCH (11:20)
--- NOTE | 2024-05-15 11:30 | Electrocardiogram Report ---
Test Reason : Blood Pressure : */* mmHG Vent. Rate : 108 BPM Atrial Rate : 108 BPM P-R Int : 122 ms QRS Dur : 72 ms QT Int : 334 ms P-R-T Axes : 74 87 78 degrees QTcB Int : 447 ms Sinus tachycardia Possible Left atrial enlargement Borderline ECG When compared with ECG of 16-Sep-2019 04:36, No significant change was found Confirmed by Andreas Penn ([id number]) on 05/15/2024 11:30:07 AM Referred By: REFERRED SELF Confirmed By: Andreas Penn
[2024-05-15] MEDS: FAMOTIDINE 20 MG TAB PO STA (11:38)
[2024-05-15] MEDS: guaiFENesin/DEXTROM SYRUP 200MG/20MG 10ML UDC PO STA (11:38)
[2024-05-15] MEDS: methylPREDNISolone 125 MG/2 ML VIAL IV STA (11:40)
[2024-05-15] MEDS ORDERED: ACETAMINOPHEN 325 MG TAB PO PRN (12:04)
[2024-05-15] MEDS: methylPREDNISolone 40 MG in SYRINGE 0 ML IV SCH (18:06)
[2024-05-15] MEDS: guaiFENesin/DEXTROM SYRUP 200MG/20MG 10ML UDC PO SCH (18:06)
[2024-05-15] MEDS ORDERED: methylPREDNISolone 125 MG/2 ML VIAL IV SCH (18:30)
[2024-05-16 06:52] LABS: Hematocrit (blood only) 46.9 % (37.0-47.0); Hemoglobin 15.8 g/dl (12.0-16.0); Mean Corpuscular Hgb Conc 33.7 g/dL (32.0-36.0); Mean Corpuscular Volume 86.2 fL (80.0-100.0); Mean Platelet Volume 9.9 fL (9.4-12.4); Platelet Count 368 K/uL (130-400); RDW Coefficient of Variation 13.1 % (11.5-14.5); Red Blood Count 5.44 M/uL (4.20-5.40); White Blood Count 17.08 K/ul (4.8-10.8)
[2024-05-16 07:08] LABS: BUN Creatinine Ratio 24.6 (10-20); Est GFR (African American) 121.8 ml/min; Est GFR (Non-African American) 105.1 ml/min; Magnesium 2.5 mg/dl (1.7-2.4); Phosphorus 4.2 mg/dl (2.5-4.9); Potassium 4.8 mmol/L (3.5-5.1)
--- NOTE | 2024-05-16 08:02 | Hospitalist Progress Note ---
Date of Service May 16, 2024 Assessment & Plan (1) Asthma exacerbation: Plan: This is a 53 y/o female with asthma/COPD, tobacco use disorder, and anxiety who presented to the ED with worsening Shortness of breath. She was given a course of prednisone and antibiotics as an outpatient with initial improvement but symptoms subsequently worsened after completing these medications. In the ED, she was found to be hypoxic in the upper 80s on room air but has improved on 2L of oxygen. She was given Solu-Medrol 125 mg IV en route as well as an Atrovent neb. She has been using albuterol inhaler and nebs at home without significant relief. Respiratory panel negative, no leukocytosis. - Continue supplemental O2 for now; wean off as tolerated - Continue IV steroids - Nebs scheduled (budesonide, Duoneb) and PRN (Xopenex) - Anti-tussives Will benefit from outpatient pulmonology follow-up after discharge (2) Tobacco use disorder: Plan: Smoking cessation encouraged Nicotine patch ordered (3) Environmental allergies: Plan Code status: Full code DVT Prophylaxis: Lovenox Please note the above document was generated using voice recognition software. It may contain grammatical, syntax or spelling errors. Any formal questions or concerns about the content, text or information contained within the body of this dictation should be directly addressed to the provider for clarification Admission and Anticipated Discharge Date Admission Date: May 15, 2024 Subjective Patient seen and examined at bedside She is comfortable; not in distress reports that she is feeling much better No significant events overnight Review of Systems Review of Systems: All systems reviewed & are unremarkable except as noted in Subjective Physical Exam Physical Exam: Constitutional: WD/WN, vitals as above, NAD, sitting up in bed, pleasant, conversing easily Respiratory: Bilateral wheeze present Cardiovascular: RRR, no murmur, no edema Vessels: no JVD or carotid bruit Chest: normal inspection of chest Abdomen: normal bowel sounds, soft, nontender, no hepatosplenomegaly Musculoskeletal: no cyanosis or clubbing, extremities motor strength 5/5 Skin: no rashes, warm and dry normal turgor Neurologic: PERRL, EOMI, accommodation nl, no face palsy, no dysarthria CN's II- XI intact bilaterally and moves all extremities Psychiatric: A+Ox3, euthymic affect Results & Data Results & Data Vital Signs (Past 12 Hours) Vital Signs Temp Pulse Pulse Resp BP Pulse Ox O2 Del Method 05/16/24 07:08 112 H 20 93 Nasal Cannula 05/16/24 06:56 36.8 C 96 H 18 110/76 91 Nasal Cannula 05/15/24 23:18 87 05/15/24 21:45 Nasal Cannula O2 Flow Rate 05/16/24 07:08 2 05/16/24 06:56 3 05/15/24 23:18 05/15/24 21:45 3 (1) Asthma exacerbation Asthma persistence: persistent Asthma severity: mild Qualified Code(s): J45.31 - Mild persistent asthma with (acute) exacerbation
[2024-05-16] MEDS: FAMOTIDINE 20 MG TAB PO SCH (08:36)
[2024-05-16] MEDS: ENOXAPARIN INJ 40 MG/0.4 ML SYR SQ SCH (08:36)
[2024-05-16] MEDS: NICOTINE 21 MG/24 HR TDSY TD SCH (08:37)
[2024-05-16] MEDS: AZITHROMYCIN 250 MG TAB PO SCH (08:40)
[2024-05-16] MEDS ORDERED: UMECLIDINIUM/VILANTEROL 62.5/25MCG 7 PUFFS/INHALER INH SCH (09:00)
[2024-05-17 02:59] VITALS: TEMP 97.9
[2024-05-17 07:10] VITALS: BP 116/78
--- NOTE | 2024-05-17 09:05 | Discharge Summary ---
Date of Service May 17, 2024 Admission HPI Per Admitting Provider This is a 53 y/o female with asthma/COPD, tobacco use disorder, and anxiety who presented to the ED today with worsening asthma symptoms. She reports that the initial symptoms started about a month ago and were most upper respiratory with head congestion, nasal congestion, and rhinorrhea initially then developed the cough and wheezing. She was evaluated outpatient and given a course of prednisone and antibiotics with initial improvement. However, after finishing the medications, her symptoms again worsened before starting to improve again. However, over the last three days, symptoms are again worsening, which she thinks was triggered by exposure to allergens while cruzito tomatoes. Her cough that may be productive of clear phlegm. She denies fevers at any point with these symptoms. She has noted wheezing and has been using her albuterol nebs. She denies ST, N/V, chest pain, palpitations. Some muscle soreness related to coughing. Overall, just feels really tired and worn out. Appetite is at basel ine. She smokes 1.5-2 PPD but decided to try quitting 36 hours ago. Has smoked intermittently since she was age 4. She reports taking her maintenance inhalers as prescribed. She was admitted in 2018 for similar symptoms. Admission Exam Per Admitting Provider ENERAL: Alert and oriented x3. NAD, on breathing treatment. HEENT: No pallor, no icterus. Pupils equal, round and reactive to light. Oral mucosa moist. NECK: No JVD, no neck masses. HEART: S1 and S2 heard. Regular rate and rhythm. Tachycardia. No murmur, no gallop. RESPIRATORY SYSTEM: Normal AP diameter. No accessory muscle use. extensive b/l wheezing, no crackles. ABDOMEN: Soft, bowel sounds present, nontender, no distention. CENTRAL NERVOUS SYSTEM: No facial droop. Speech is clear. Obeys simple commands. Moves extremities. EXTREMITIES: No edema, no erythema seen. Principal Diagnosis Asthma/COPD excerebation Discharge Exam Constitutional: WD/WN, vitals as above, NAD, sitting up in bed, pleasant, conversing easily Respiratory:no wheeze Cardiovascular: RRR, no murmur, no edema Vessels: no JVD or carotid bruit Chest: normal inspection of chest Abdomen: normal bowel sounds, soft, nontender, no hepatosplenomegaly Musculoskeletal: no cyanosis or clubbing, extremities motor strength 5/5 Skin: no rashes, warm and dry normal turgor Neurologic: PERRL, EOMI, accommodation nl, no face palsy, no dysarthria CN's II- XI intact bilaterally and moves all extremities Psychiatric: A+Ox3, euthymic affect Discharge Data Allergies Allergy/AdvReac Type Severity Reaction Status Date / Time cetirizine Allergy Intermediate hives Verified 09/16/19 05:46 diphenhydramine Allergy Intermediate RASH Verified 09/16/19 05:46 morphine Allergy Unknown RASH Verified 09/16/19 05:46 Sulfa (Sulfonamide Allergy Unknown Unknown Verified 09/16/19 05:46 Antibiotics) Consultations 05/15/24 09:38 ED Decision to Admit Stat Hospital Course (1) Asthma exacerbation: (2) Tobacco use disorder: (3) Environmental allergies: Plan This is a 53 y/o female with asthma/COPD, tobacco use disorder, and anxiety who presented to the ED with worsening Shortness of breath. She was given a course of prednisone and antibiotics as an outpatient with initial improvement but symptoms subsequently worsened after completing these medications. In the ED, she was found to be hypoxic in the upper 80s on room air but has improved on 2L of oxygen. She was given Solu-Medrol 125 mg IV en route as well as an Atrovent neb. She has been using albuterol inhaler and nebs at home without significant relief. Respiratory panel negative, no leukocytosis. Patient was admitted to the hospital; duonebs round the clock, iv steroids and supplemental oxygen. Patient's respiratory status significantly improved; she was saturating well on room air at the time of discharge. Lung examination did not show any wheezes Patient was discharged home with instruction to follow-up with her PCP and pulmonology Please note the above document was generated using voice recognition software. It may contain grammatical, syntax or spelling errors. Any formal questions or concerns about the content, text or information contained within the body of this dictation should be directly addressed to the provider for clarification Total Time Total Time Spent Total Time Spent (In Minutes): 35 Total Time Includes: Examination of the Patient, Discharge Planning, Medication Reconciliation, Communication With Other Providers and Other Discharge Plan Discharge Items Patient Disposition: Home - Self-Care Reason For Visit: ASTHMA/COPD EXACERBATION Discharge Diagnosis: Asthma exacerbation Activity: Resume your previous activity Non-emergency contact: Primary Care Provider Call non-emergency contact if: you have any medication questions and your symptoms worsen Follow-up/Referrals: Jesse Palomares MD [Primary Care Provider] - Diet: Regular Addtl Attending Provider Instructions: Please use inhalers as prescribed before. You can use nebulizer 3-4 times a day for next few days. Please take prednisone as follows Take 40 mg once a day for 2 days Take 20 mg once a day for 2 days Take 10 mg once a day for 2 days Please follow-up with your primary care doctor. An appointment will be made for you. Please follow-up with pulmonology Pending Studies at Discharge: No Stand-Alone Forms: My [facility] [employer], Smoking Cessation Medications and DC Order Prescriptions: New prednisone 10 mg tablet See Taper PO DAILY Qty: 14 0RF Taper: Taper, Blank 40 mg DAILY for 2 Days 20 mg DAILY for 2 Days 10 mg DAILY for 2 Days Continued albuterol sulfate 90 mcg/actuation HFA aerosol inhaler 2 puff INHALATION Q4 PRN (Reason: cough,sob) Stiolto Respimat 2.5-2.5 mcg/actuation mist 2 puff INHALATION DAILY Qvar RediHaler 80 mcg/actuation HFA aerosol breath activated 80 mcg INHALATION BID Rx Instructions: 2 puffs bid epinephrine [EpiPen] 0.3 mg/0.3 mL Auto-Injector 0.3 mg IM UD PRN (Reason: Allergic Reaction) albuterol sulfate 2.5 mg /3 mL (0.083 %) solution for nebulization 2.5 mg INH Q4H Qty: 180 0RF Discharge Orders: Discharge Order (Routine); Ordered 05/17/24 Ordered By: Michael Booker Admission Data Admit Date/Time: 05/15/24 09:56 Attending Provider: Michael Booker Admit Provider: Thelma Kelly Primary Care Provider: Jesse Palomares Other Providers: Thelma Kelly Other Interventions: Discharge Summary Assessment (RN) Last Done: 05/17/24 11:38
[2024-05-17] MEDS: predniSONE 20 MG TAB PO STA (10:42)
[2024-05-17 11:30] VITALS: PULSE 111; RESP 16; O2SAT 95
== END 2024-05-17 13:52 | disposition home or self-care (01) | DRG 203 ==
LOC: ED 07:22 → SUATTDRO 09:56 → EDINP 09:56 → 2E 12:04